=== PATIENT | male | born 1960 | race Asian ===

== ENCOUNTER 2021-06-01 12:07 | Observation (INO) | payer OTHER, MEDICAID, SELFPAY ==
[2021-06-01] VITALS (52 sets, daily range): BP systolic 119–161; BP diastolic 65–89; PULSE 73–86; RESP 15–27; TEMP 36.4–36.9; O2SAT 94–100; BMI 26.6
--- NOTE | 2021-06-01 | DI.CT.S_ITS ---
PROCEDURE: CT ANGIO HEAD AND NECK INDICATIONS: LEFT SIDED WEAKNESS TECHNIQUE: Pre-contrast 4.5 mm thick sections acquired from the foramen magnum to the vertex. After the administration of intravenous contrast, 1 mm thick sections acquired from the aortic arch through the [place]. Post-contrast 4.5 mm thick sections then re-acquired from the foramen magnum to the vertex. 3-dimensional ikslqha-fncfweugw-sbubdknffz (MIP) and/or volume rendering reformats were acquired of the central intracranial vasculature and neck separately. COMPARISON: None. FINDINGS: Image quality: Excellent. BRAIN: CSF spaces: Ventricles are normal in size and shape. Basal cisterns are patent. No extra-axial fluid collections. Brain: No midline shift. No intracranial bleeds or masses. Colón-white matter interface appears intact. Skull and face: Calvarium and facial bones appear intact, without suspicious lesions. Orbits appear normal. Sinuses: The left maxillary sinus has a mucosal retention cyst. The remaining visualized sinuses are well aerated. HEAD CT ANGIOGRAPHY: Anterior circulation: The the right A1 segment and right posterior communicating arteries are hypoplastic. The remaining intracranial internal carotid arteries are normal in size and flow. The flow within the paired anterior cerebral arteries is normal and symmetric. The flow within the middle cerebral arteries is normal and symmetric. The anterior communicating artery is seen. No aneurysms are seen. Posterior circulation: Visualized portions of the vertebral arteries demonstrate normal caliber, and join to form a normal appearing basilar artery. Flow within the posterior cerebral arteries is normal and symmetric. No aneurysms are seen. NECK CT ANGIOGRAPHY: Carotid system: There is a dissection of the aorta partially visualized in the aortic arch. The dissection appears to begin distal to the left subclavian artery. Changes of aneurysm repair are seen. CT of the chest and abdomen are pending. The visualized great vessels as they arise from the aortic arch are patent. The common carotid arteries demonstrate normal caliber and courses. The bifurcation regions are both widely patent. The internal carotid arteries demonstrate normal calibers and courses. Posterior circulation: The origins of the vertebral arteries both appear widely patent. The more superior extracranial portions of both vertebral arteries also demonstrate normal courses and calibers. They join to form a normal appearing basilar artery. Soft tissues: Visualized neck soft tissues demonstrate no suspicious abnormalities. Bones: No suspicious bony lesions. Visualized cervical spine appears normally aligned. IMPRESSION: 1. Partially visualized aortic dissection. The dissection appears to begin distal to the left subclavian artery. Postoperative changes of aneurysm repair are seen. 2. The proximal origins of the common carotid arteries are not completely visualized, however the remainder of the CT angiogram of the neck. 3. Normal CT angiogram of the head. CT angiogram of the chest, abdomen, and pelvis will be dictated separately. Findings were discussed with Dr. Boswell at 1 p.m. On 06/01/2021. Dictated by: Tyree King M.D. on 06/01/2021 at 12:50 Approved by: Tyree King M.D. on 06/01/2021 at 13:07
--- NOTE | 2021-06-01 | DI.CT.S_ITS ---
PROCEDURE: CT ANGIO CHEST ABDOMEN PELVIS INDICATIONS: dissection on recent CT Scan TECHNIQUE: Precontrast 5 mm thick sections acquired from the lung apices to the iliac crests. After the administration of intravenous contrast, 2.5 mm thick sections again acquired from the lung apices to the iliac crests. Maximum intensity projection (MIP) oblique sagittal and coronal reformats were then acquired. For radiation dose reduction, the following was used: automated exposure control. COMPARISON: [facility], CT, CT ANGIO HEAD AND NECK, 06/01/2021, 12:32. FINDINGS: Image quality: Excellent. AORTA: There is a dissection within the descending thoracic aorta which extends into the superior most portion of the abdominal aorta to the level of the celiac axis. The dissection is at the left lateral most margin of the celiac axis origin, which is centered upon the true lumen. Dissection extends superiorly into the aortic arch and distal ascending thoracic aorta. There appears to be postsurgical changes from prior dissection repair, with apparent vessel translocation. It is suspected there was a [place] bovine arch with postsurgical anastomosis of the left subclavian to the [place] origin of the innominate and left common carotid arteries. Dissection does not appear to extend into the common origin. CHEST: Lungs and pleura: No acute airspace opacities. No pleural effusions or pneumothorax. Central and peripheral airways are patent and normal in caliber. Mediastinum: Heart size is normal. No pericardial effusion. No mediastinal or hilar adenopathy by size criteria. Central pulmonary arteries are normal in size. Esophagus is normal in caliber. No hiatal hernias. Bones and chest wall: No axillary adenopathy by size criteria. Thyroid gland is unremarkable . No suspicious bony lesions. No vertebral body compression fractures. ABDOMEN: Vasculature: Celiac trunk and mesenteric arteries are patent. Renal arteries are also patent. Solid organs: Liver is normal in size and enhancement. Gallbladder demonstrates dependent sludge versus small stones. No wall thickening Biliary system is non dilated. Pancreas enhances normally. Spleen is normal in size and enhancement. No adrenal nodules. Both kidneys are normal in size and enhancement, without hydronephrosis. Peritoneum and bowel: No free fluid or air. Bowel loops are normal in caliber and wall thickness. Nodes and vessels: No retroperitoneal or mesenteric adenopathy by size criteria. Inferior vena cava is normal in morphology. Miscellaneous: No ventral hernias. PELVIS: Genitourinary: Bladder wall thickness is normal. Miscellaneous: No inguinal hernias or adenopathy. No ventral hernias. Bones: No suspicious bony lesions. No vertebral body compression fractures. IMPRESSION: 1. Type A aortic dissection extending into the aortic arch and portions of the ascending aorta. There is an overall appearance of what appears to be prior dissection repair with translocation of great vessels. Recommend correlation to patient history and prior imaging if it becomes available. There is no definitive dissection identified extending into what appears to be the postsurgical common origin of the innominate, left common carotid and subclavian arteries. 2. Dissection extends into the descending thoracic aorta and into the abdominal aorta terminating at the level of the celiac axis as above. The dissection is noted to be present at the lateral most margin of the celiac axis origin as above. The above findings were discussed with Dr. Ana Boswell on 06/01/2021 at 1:15 p.m. Dictated by: Maryann Hollis M.D. on 06/01/2021 at 13:01 Approved by: Maryann Hollis M.D. on 06/01/2021 at 13:25
--- NOTE | 2021-06-01 12:18 | DI.RAD.S_ITS ---
PROCEDURE: XR CHEST 1V INDICATIONS: Possible stroke TECHNIQUE: One view of the chest was acquired. COMPARISON: None. FINDINGS: Surgical changes and devices: Status post CABG procedure. Lungs and pleura: Lungs are clear. No pleural effusions or pneumothorax. Mediastinum: Aortic arch and descending aorta are prominent. Heart size is normal. Bones and chest wall: No suspicious bony lesions. Overlying soft tissues appear unremarkable. IMPRESSION: 1. No acute cardiopulmonary disease process. 2. Aorta prominence. Aortic aneurysm is not excluded by this study. Dictated by: Haydee Ashley MD, PhD on 06/01/2021 at 12:43 Approved by: Haydee Ashley MD, PhD on 06/01/2021 at 12:44
--- NOTE | 2021-06-01 12:18 | DI.CT.S_ITS ---
PROCEDURE: CT STROKE INDICATIONS: numbness in left hand and severe DIAZ TECHNIQUE: Noncontrast 4.5 mm thick angled axial sections acquired from the foramen magnum to the vertex, with coronal reformats. For radiation dose reduction, the following was used: automated exposure control, adjustment of mA and/or kV according to patient size. COMPARISON: None. FINDINGS: Image quality: Excellent. CSF spaces: Basal cisterns are patent. No extra-axial fluid collections. The ventricles are symmetric in size and shape. Brain: No intracranial bleeds or masses. There is cerebral volume loss for age, with resultant ventricular and sulcal prominence. There are periventricular and deep white matter chronic small vessel ischemic changes. There is intracranial internal carotid artery atherosclerosis. Hypodensity involving the right parietal lobe could reflect infarct. Skull and face: Calvarium and visualized facial bones appear intact, without suspicious lesions. Sinuses: Mild left maxillary mucous retention cysts and thickening. IMPRESSION: No acute intracranial hemorrhage. Hypodensity involving the right parietal lobe, potentially infarct. This could be confirmed with MRI brain as clinically necessary. Findings (including all critical results, if any) and recommendations were personally telephoned and discussed with Dr. Boswell on 06-01-21 12:38 This study fulfills neurological imaging criteria for inclusion or exclusion of acute stroke therapies based on available published neurological guidelines. Dictated by: Kavin Dejesus M.D. on 06/01/2021 at 12:33 Approved by: Kavin Dejesus M.D. on 06/01/2021 at 12:40
--- NOTE | 2021-06-01 12:36 | ED_ITS ---
HPI - Neuro Symptoms/Deficit General Chief Complaint: Neuro Symptoms/Deficit Stated Complaint: stroke symptoms Time Seen by Provider: 06/01/21 12:36 Source: patient Mode of arrival: Ambulatory Limitations: no limitations History of Present Illness HPI Narrative: This is a 60-year-old male who comes emergency department with complaint of left-sided headache and tingling in his left upper extremity. Patient states he had symptoms about a year ago. He states some that he has had a dissection which he states was repaired in [facility] 4-[address] Rowell. Patient lives in [place] and states he has been followed regularly and had a CT scan in the past year which appeared stable. Patient states he has been asymptomatic since then. He has a left-sided headache behind his eye, tingling in his upper extremity but denies other symptoms. He denies any other weakness or difficulty with movement, no tingling or numbness in his lower extremities. He denies any chest pain or pressure. No shortness of breath. He has had some mild nausea but no vomiting. Patient denies any diarrhea, constipation or urinary symptoms. Patient takes losartan and metoprolol daily. He denies any other surgical history. No allergies to medications. No tobacco, occasional alcohol, no illicit. He is accompanied by his today. Related Data Allergies Allergy/AdvReac Type Severity Reaction Status Date / Time No Known Drug Allergies Allergy Verified 06/01/21 12:15 Review of Systems Review of Systems ROS Unobtainable: All systems reviewed & are unremarkable except as noted in HPI and below Patient History Family History (Updated 06/01/21 @ 18:06 by Marisa Vences MD) Father FH: heart attack Social History household members: spouse Smoking Status: Never smoker alcohol intake: current Smoking Status: Unknown if ever smoked alcohol intake frequency: a few times a week Substance Use Type: does not use Exam Narrative Exam Narrative: GEN: well nourished, well appearing male, alert and oriented x 3, patient appears to be in mild distress. HEENT: Atraumatic, pupils are equal round reactive to light, extraocular movements are intact, nares are clear, TMs are clear with no fluid, there is no conjunctival pallor. Throat is clear without any exudates, erythema, tonsillar enlargement or uvular deviation, no facial droop. No bruit. HEART: Regular rate and rhythm without murmur, clicks, rubs. No carotid bruits, pulses are equal in upper and lower extremities LUNGS:Lungs clear to auscultation, no wheezes, rales, crackles, chest moves symmetrically ABD:bowel sounds normal, soft, non-tender, no guarding, rebound, rigidity, no masses noted, no hepatosplenomegaly :No CVA tenderness MSCL: Non-tender, no muscle atrophy, muscles strength 5/5 upper and lower extremities, full range of motion, normal gait NEURO:CN 2-12 intact, sensation normal SKIN: No rash or skin changes. Initial Vital Signs Initial Vital Signs: Vital Signs Temperature 97.6 F 06/01/21 12:15 Pulse Rate 86 06/01/21 12:15 Respiratory Rate 15 06/01/21 12:15 Blood Pressure 144/80 H 06/01/21 12:15 Pulse Oximetry 98 06/01/21 12:15 Scores NIH Stroke Scale Level of Conciousness: Alert, keenly responsive Ask month/age: Answers both questions correctly. Open/close eyes, close hand: Performs both tasks correctly Best gaze horizontal: Normal Visual sharpe: No visual loss Facial palsy: Normal symetrical movement Left arm drift: No drift for full 10 sec Right arm drift: No drift for full 10 sec Left leg drift: No drift for full 5 sec Right leg drift: No drift for full 5 sec Limb ataxia: Absent Sensory on face/arms/legs: Mild to moderate sensory loss, can tell touch Best language: No aphasia, normal Dysarthria: Normal Extinction or inattention: No abnormality Total NIH Stroke scale score: 1 Course Orders Ordered: ED Orders 06/01/21 14:00 COVID19 - ADMIT (PSYCHIATRIC THERAPIST swab/PCR) Stat Acetaminophen (Acetaminophen 325 Mg Tablet) 650 mg PO Q6HR PRN PRN Reason: Fever/Mild Pain (1-3) Hydrocodone Bitart/Acetaminophen (Hydrocodone/Acet 5/325 Tablet) 1 tab PO Q4HR PRN PRN Reason: Pain, Moderate (4-6) Last Admin: 06/01/21 19:46 Dose: 1 tab Documented by: [email or web address] Aspirin (Aspirin Ec 81 Mg Tablet) 81 mg PO DAILY JAKE Bisacodyl (Bisacodyl 10 Mg Supp) 10 mg [place] DAILY PRN PRN Reason: Constipation Clopidogrel Bisulfate (Clopidogrel 75 Mg Tablet) 75 mg PO DAILY JAKE Docusate Sodium (Docusate 100 Mg Capsule) 100 mg PO BID JAKE Enoxaparin Sodium (Enoxaparin 40 Mg/0.4 Ml Syringe) 40 mg SUBCUT DAILY JAKE Magnesium Hydroxide (Magnesium Hydroxide 30 Ml Udc) 30 ml PO DAILY PRN PRN Reason: Constipation Naloxone HCl (Naloxone 0.4 Mg/Ml Vial) 0.2 mg IV Q2MIN PRN PRN Reason: Opiate Reversal Ondansetron HCl (Ondansetron 4 Mg/2 Ml Inj) 4 mg IV Q8HR PRN PRN Reason: Nausea And Vomiting Discontinued Medications Aspirin (Aspirin 81 Mg Chew Tab) 324 mg PO NOW ONE Stop: 06/01/21 15:14 Last Admin: 06/01/21 15:16 Dose: 324 mg Documented by: FRED Labetalol HCl (Labetalol 20 Mg/4 Ml Syringe) 5 mg IV NOW ONE Stop: 06/01/21 12:52 Last Admin: 06/01/21 12:55 Dose: 5 mg Documented by: FRED Labetalol HCl (Labetalol 20 Mg/4 Ml Syringe) 10 mg IV NOW ONE Stop: 06/01/21 13:20 Last Admin: 06/01/21 13:26 Dose: 10 mg Documented by: FRED Reevaluation(s) Reevaluation #1: Evaluation after speaking with [facility]. Patient aware and comfortable with plan. All questions answered. He is also aware that he should be having a referral and follow-up for regular serial exams of his dissection and that this would be most appropriate with subspecialty and not just primary care. He should be expecting a phone call Friday or Friday and should reach out if he has not been contacted . Consultations Consultation #1: Dr. Poole at 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 Patient's repair and dissection are appreciated. No acute intervention at this time with a referral is sent by [facility] coordinator to follow-up outpatient for continuing monitoring and treatment as appropriate at [facility]. He does not feel that patient's changes today are the cause of his stroke-like symptoms. We did note that he does have subacute stroke noted on his head CT. We also discussed specifically if patient can not be anticoagulated and was told no restrictions in terms of anticoag ulation patient may be treated as appropriate by neurology. We did review that patient had his repair done in [place], we do not have any imaging for comparison. Patient's maximum diameter per Radiology was 5.3 cm and unclear if any of this is new changes from prior. He has a primary care physician that he follows with regularly but no he specialty follow-up for his dissection. Consultation #2: Neurology [facility], spoke with neurology. They recommend aspirin 325 mg. Atorvastatin until wrist fracture medication it has returned usual stroke workup with MRI, telemetry and labs. Patient is not an interventional candidate based on his timing. Consultation #3: Dr. Vences, hospitalist accepts for admission. We reviewed patient's past medical history, recommendations from CBT at [facility] who did review his images and did clearly state that he is allowed to be anticoagulated. And that they do not have any restrictions for him at this point. We also spoke with neurology who recommends typical stroke workup. Patient's does have changes on head CT. He is outside the interventional window. Aspirin was ordered here in the department. Additional Consultation(s): Radiology, called with CT angiography of head and neck and chest/abd/pelvis. They do note he does have transposition but his dissection does not appear to involve the common origin of the innominate, left carotid or subclavian arteries. Dissection extends through the aorta into the descending aorta and terminates just above the celiac vessel. We do not have any priors for comparison and unclear if this is any acute or new changes versus chronic change. Maximum diameter or aorta is 5.3cm with clips present. Vital Signs Vital signs: Vital Signs - 8 hr 06/01/21 14:45 06/01/21 14:50 06/01/21 14:55 Pulse Rate 84 79 81 Respiratory Rate 22 18 16 Blood Pressure 153/82 H Pulse Oximetry 96 95 95 MDM - Neuro Symptoms/Deficit Lab Data Result diagrams: 06/01/21 12:54 06/01/21 12:54 Labs: Lab Results 06/01/21 06/01/21 06/01/21 Range/Units 12:54 12:54 12:54 WBC 4.8 (4.5-11.0) X10^3/uL RBC 3.66 L (4.5-5.9) X10^6/uL Hgb 12.4 L (13.5-17.5) g/dL Hct 37.0 L (41-53) % MCV 101.3 H (80-100) fL MCH 33.9 (26-34) PG MCHC 33.4 (30-36) % RDW 12.7 (11.6-14.8) % Plt Count 196 (150-400) X10^3/uL Neut % (Auto) 65.3 (50-75) % Lymph % (Auto) 22.6 L (25-40) % [place]offey % (Auto) 9.0 (3-14) % Eos % (Auto) 2.4 (2-4) % Baso % (Auto) 0.7 (0-2) % Neut # (Auto) 3100 (0727-1987) /uL Lymph # (Auto) 1100 (1485-9964) /uL [place]offey # (Auto) 400 (0-900) /uL Eos # (Auto) 100 (0-450) /uL Baso # (Auto) 0 (0-100) /uL PT 12.7 (10.1-12.7) SECONDS INR 1.1 (0.9-1.3) APTT 32 (26.4-36.2) SECONDS Sodium 136 L (137-145) mmol/L Potassium 3.8 (3.4-5.1) mmol/L Chloride 105 (98-107) mmol/L Carbon Dioxide 26 (22-32) mmol/L BUN 25 H (9-20) mg/dL Creatinine 0.77 (0.66-1.25) mg/dL Estimated GFR > 60.0 (>60) mL/min BUN/Creatinine Ratio 32.5 H (6-22) Glucose 115 H (80-110) mg/dL Calcium 8.2 L (8.4-10.2) mg/dL Total Bilirubin 0.6 (0.2-1.3) mg/dL AST 20 (17-59) IU/L ALT 15 (<50) IU/L Alkaline Phosphatase 37 L (38-126) U/L Total Creatine Kinase 52 L (55-170) U/L CK-MB (CK-2) TNP CK-MB (CK-2) Rel Index TNP Troponin I < 0.012 (0.01-0.034) ng/mL Total Protein 6.0 L (6.3-8.2) g/dL Albumin 3.3 L (3.5-5.0) g/dL Globulin 2.7 (1.7-4.1) g/dL Albumin/Globulin Ratio 1.2 (1.0-2.8) SARS-CoV-2 (PCR) (Negative) Blood Type Antibody Screen Crossmatch 06/01/21 06/01/21 Range/Units 12:54 14:00 WBC (4.5-11.0) X10^3/uL RBC (4.5-5.9) X10^6/uL Hgb (13.5-17.5) g/dL Hct (41-53) % MCV (80-100) fL MCH (26-34) PG MCHC (30-36) % RDW (11.6-14.8) % Plt Count (150-400) X10^3/uL Neut % (Auto) (50-75) % Lymph % (Auto) (25-40) % Coffey % (Auto) (3-14) % Eos % (Auto) (2-4) % Baso % (Auto) (0-2) % Neut # (Auto) (0621-5496) /uL Lymph # (Auto) (5020-1923) /uL Coffey # (Auto) (0-900) /uL Eos # (Auto) (0-450) /uL Baso # (Auto) (0-100) /uL PT (10.1-12.7) SECONDS INR (0.9-1.3) APTT (26.4-36.2) SECONDS Sodium (137-145) mmol/L Potassium (3.4-5.1) mmol/L Chloride (98-107) mmol/L Carbon Dioxide (22-32) mmol/L BUN (9-20) mg/dL Creatinine (0.66-1.25) mg/dL Estimated GFR (>60) mL/min BUN/Creatinine Ratio (6-22) Glucose (80-110) mg/dL Calcium (8.4-10.2) mg/dL Total Bilirubin (0.2-1.3) mg/dL AST (17-59) IU/L ALT (<50) IU/L Alkaline Phosphatase (38-126) U/L Total Creatine Kinase (55-170) U/L CK-MB (CK-2) CK-MB (CK-2) Rel Index Troponin I (0.01-0.034) ng/mL Total Protein (6.3-8.2) g/dL Albumin (3.5-5.0) g/dL Globulin (1.7-4.1) g/dL Albumin/Globulin Ratio (1.0-2.8) SARS-CoV-2 (PCR) Negative (Negative) Blood Type A Positive Antibody Screen Negative Crossmatch See Detail Point of Care Testing Glucose POC [address] scan - head: Radiologist's Impression: [address] [id number] Scan ReportSigned Patient: Denis Porter#: [id number]: 9Acct:[id number]/Sex: 60 / MDate of Service: 06/01/21Loc: EDAccession Number: [id number] Procedure: CT Stroke Ordering Provider: Ana Boswell D.O. PROCEDURE: CT STROKE INDICATIONS: numbness in left hand and severe DIAZ TECHNIQUE: Noncontrast 4.5 mm thick angled axial sections acquired from the foramen magnum to the vertex, with coronal reformats. For radiation dose reduction, the following was used: automated exposure control, adjustment of mA and/or kV according to patient size. COMPARISON: None. FINDINGS: Image quality: Excellent. CSF spaces: Basal cisterns are patent. No extra-axial fluid collections. The ventricles are symmetric in size and shape. Brain: No intracranial bleeds or masses. There is cerebral volume loss for age, with resultant ventricular and sulcal prominence. There are periventricular and deep white matter chronic small vessel ischemic changes. There is intracranial internal carotid artery atherosclerosis. Hypodensity involving the right parietal lobe could reflect infarct. Skull and face: Calvarium and visualized facial bones appear intact, without suspicious lesions. Sinuses: Mild left maxillary mucous retention cysts and thickening. IMPRESSION: No acute intracranial hemorrhage. Hypodensity involving the right parietal lobe, potentially infarct. This could be confirmed with MRI brain as clinically necessary. Findings (including all critical results, if any) and recommendations were personally telephoned and discussed with Dr. Boswell on 06-01-21 12:38 This study fulfills neurological imaging criteria for inclusion or exclusion of acute stroke therapies based on available published neurological guidelines. Dictated by: Kavin Dejesus M.D. on 06/01/2021 at 12:33 Approved by: Kavin Dejesus M.D. on 06/01/2021 at 12:40 CTA - brain/neck: Radiologist's Impression: Denis Porter 60 M [address] [id number] Scan ReportSigned Patient: Denis PorterR#: [id number]: 1960cct:[id number]/Sex: 60 / MDate of Service: 06/01/21Loc: EDAccession Number: [id number] Procedure: CT angio head and neck Ordering Provider: Ana Boswell D.O. PROCEDURE: CT ANGIO HEAD AND NECK INDICATIONS: LEFT SIDED WEAKNESS TECHNIQUE: Pre-contrast 4.5 mm thick sections acquired from the foramen magnum to the vertex. After the administration of intravenous contrast, 1 mm thick sections acquired from th e aortic arch through the [place]. Post-contrast 4.5 mm thick sections then re- acquired from the foramen magnum to the vertex. 3-dimensional sjoikac-aybwrphma-ouxumabwqm (MIP) and/or volume rendering reformats were acquired of the central intracranial vasculature and neck separately. COMPARISON: None. FINDINGS: Image quality: Excellent. BRAIN: CSF spaces: Ventricles are normal in size and shape. Basal cisterns are patent. No extra-axial fluid collections. Brain: No midline shift. No intracranial bleeds or masses. Colón-white matter interface appears intact. Skull and face: Calvarium and facial bones appear intact, without suspicious lesions. Orbits appear normal. Sinuses: The left maxillary sinus has a mucosal retention cyst. The remaining visualized sinuses are well aerated. HEAD CT ANGIOGRAPHY: Anterior circulation: The the right A1 segment and right posterior communicating arteries are hypoplastic. The remaining intracranial internal carotid arteries are normal in size and flow. The flow within the paired anterior cerebral arteries is normal and symmetric. The flow within the middle cerebral arteries is normal and symmetric. The anterior communicating artery is seen. No aneurysms are seen. Posterior circulation: Visualized portions of the vertebral arteries demonstrate normal caliber, and join to form a normal appearing basilar artery. Flow within the posterior cerebral arteries is normal and symmetric. No aneurysms are seen. NECK CT ANGIOGRAPHY: Carotid system: There is a dissection of the aorta partially visualized in the aortic arch. The dissection appears to begin distal to the left subclavian artery. Ch anges of aneurysm repair are seen. CT of the chest and abdomen are pending. The visualized great vessels as they arise from the aortic arch are patent. The common carotid arteries demonstrate normal caliber and courses. The bifurcation regions are both widely patent. The internal carotid arteries demonstrate normal calibers and courses. Posterior circulation: The origins of the vertebral arteries both appear widely patent. The more superior extracranial portions of both vertebral arteries also demonstrate normal courses and calibers. They join to form a normal appearing basilar gianna ry. Soft tissues: Visualized neck soft tissues demonstrate no suspicious abnormalities. Bones: No suspicious bony lesions. Visualized cervical spine appears normally aligned. IMPRESSION: 1. Partially visualized aortic dissection. The dissection appears to begin distal to the left subclavian artery. Postoperative changes of aneurysm repair are seen. 2. The proximal origins of the common carotid arteries are not completely visualized, however the remainder of the CT angiogram of the neck. 3. Normal CT angiogram of the head. CT angiogram of the chest, abdomen, and pelvis will be dictated separately. Findings were discussed with Dr. Boswell at 1 p.m. On 06/01/2021. Dictated by: Tyree King M.D. on 06/01/2021 at 12:50 Approved by: Tyree King M.D. on 06/01/2021 at 13:07 CTA chest/abd/pelvis-: Radiologist's Impression: [address] [id number] Scan ReportSigned Patient: Denis PorterR#: [id number]: 9Acct:[id number]/Sex: 60 / MDate of Service: 06/01/21Loc: EDAccession Number: [id number] Procedure: CT angio chest abdomen pelvis Ordering Provider: Ana Boswell D.O. PROCEDURE: CT ANGIO CHEST ABDOMEN PELVIS INDICATIONS: dissection on recent CT Scan TECHNIQUE: Precontrast 5 mm thick sections acquired from the lung apices to the iliac crests. After the administration of intravenous contrast, 2.5 mm thick sections again acquired from the lung apices to the iliac crests. Maximum intensity projection (MIP) oblique sagittal and coronal reformats were then acquired. For radiation dose reduction, the followi ng was used: automated exposure control. COMPARISON: [facility], CT, CT ANGIO HEAD AND NECK, 06/01/2021, 12:32. FINDINGS: Image quality: Excellent. AORTA: There is a dissection within the descending thoracic aorta which extends into the superior most portion of the abdominal aorta to the level of the celiac axis. The dissection is at the left lateral most margin of the celiac axis origin, which is centered upon the true lumen. Dissection extends superiorly into the aortic ar ch and distal ascending thoracic aorta. There appears to be postsurgical changes from prior dissection repair, with apparent vessel translocation. It is suspected there was a [place] bovine arch with postsurgical anastomosis of the left subclavian to the [place] origin of the innominate and left common carotid arteries. Dissection does not appear to extend into the common origin. CHEST: Lungs and pleura: No acute airspace opacities. No pleural effusions or pneumothorax. Central and peripheral airways are patent and normal in caliber. Mediastinum: Heart size is normal. No pericardial effusion. No mediastinal or hilar adenopathy by size criteria. Central pulmonary arteries are normal in size. Esophagus is normal in caliber. No hiatal hernias. Bones and chest wall: No axillary adenopathy by size criteria. Thyroid gland is unremarkable . No suspicious bony lesions. No vertebral body compression fractures. ABDOMEN: Vasculature: Celiac trunk and mesenteric arteries are patent. Renal arteries are also patent. Solid organs: Liver is normal in size and enhancement. Gallbladder demonstrates dependent sludge versus small stones. No wall thickening Biliary system is non dilated. Pancreas enhances normally. Spleen is normal in size and enhancement. No adrenal nodules. Both kidneys are normal in size and enhancement, without hydronephrosis. Peritoneum and bowel: No free fluid or air. Bowel loops are normal in caliber and wall thickness. Nodes and vessels: No retroperitoneal or mesenteric adenopathy by size criteria. Inferior vena cava is normal in morphology. Miscellaneous: No ventral hernias. PELVIS: Genitourinary: Bladder wall thickness is normal. Miscellaneous: No inguinal hernias or adenopathy. No ventral hernias. Bones: No suspicious bony lesions. No vertebral body compression fractures. IMPRESSION: 1. Type A aortic dissection extending into the aortic arch and portions of the ascending aorta. There is an overall appearance of what appears to be prior dissection repair with translocation of great vessels. Recommend correlation to patient history and prior imaging if it becomes available. There is no definitive dissection identified extending into what appears to be the postsurgical common origin of the innominate, left common carotid and subclavian arteries. 2. Dissection extends into the descending thoracic aorta and into the abdominal aorta terminating at the level of the celiac axis as above. The dissection is noted to be present at the lateral most margin of the celiac axis origin as above. The above findings were discussed with Dr. Ana Boswell on 06/01/2021 at 1:15 p.m. Dictated by: Maryann Hollis M.D. on 06/01/2021 at 13:01 Approved by: Maryann Hollis M.D. on 06/01/2021 at 13:25 ECG Data Interpretation: Sinus rhythm with first-degree AV block. Left atrial enlargement. Rate 84, [place] 236 QRS of 102 and QTC of 458. No acute ST changes noted. MDM Narrative Medical decision making narrative: This is a 60-year-old who does appear to have a hypodensity consistent with infarct with that symptom onset around midnight. It was noted on CT angiography that he has a Type A dissection, patient has had repair but chest abdomen pelvis was included and this extends to the level of the celiac axis. I do not have prior imaging for comparison. Patient is asymptomatic in terms of any chest, abdominal or back pain. He does have tingling of his left upper extremity, left-sided headache and with no other acute neurologic changes. Patient states his repair was 4-5 years ago in [place]. He has at least 1 CT scan for follow-up evaluation but this was in [place] and we do not have access. Patient's symptoms started sometime around midnight or earlier last night so he is excluded for tPA in the setting of a dissection he is secondarily excluded tpa. Patient blood pressure was in the 140s, he was given labetalol to keep it below 120 until he is able to speak with the [place] at [facility] who states no acute treatment at this time but he can follow-up outpatient with the clinic. They did review all of his images. They state this is an unlikely source for his stroke recommend that we chatted with Neurology. They also do not have any restrictions in terms of anticoagulation. Referral was sent to [facility] for follow-up. I did speak with Neurology [facility] as well, they recommend usual stroke workup. I spoke with our hospitalist and shared recommendations from both specialty consultations and she accepts for admission. Stroke Core Measures Exclusion Criteria TPA in CVA: Symptom Onset >3 or 4.5 Hours Critical Care Time Critical Care Time Critical Care Time: Yes Total Critical Care Time: 65 Attestation: The high probability of a clinically significant, sudden or life threatening deterioration of the [cardiac] system(s) required my full and direct attention, intervention and personal management. The aggregate critical care time was [65] minutes. This time is in addition to time spent performing reported procedures but includes the following: [x] Data Review and interpretation [x] Patient assessment and monitoring of vital signs [x] Documentation [x] Medication orders and management Discharge Plan Departure Patient Disposition: Admitted As Inpatient Clinical Impression: Cerebrovascular accident Admit Date/Time: 06/01/21 14:57 Admit Provider: Marisa Vences
[2021-06-01] MEDS: LABETALOL 20 MG/4 ML SYRINGE 5 MG IV (12:55)
[2021-06-01 13:10] LABS: Add Manual Diff / Slide Review NO; Basophils Absolute Auto 0 /uL (0-100); Basophils Percent Auto 0.7 % (0-2); Eosinophils Absolute Auto 100 /uL (0-450); Eosinophils Percent Auto 2.4 % (2-4); Hemoglobin 12.4 g/dL (13.5-17.5); Lymphocytes Absolute Auto 1100 /uL (1100-4500); Lymphocytes Percent Auto 22.6 % (25-40); Mean Corpuscular HGB Conc 33.4 % (30-36); Mean Corpuscular Hemoglobin 33.9 PG (26-34); Mean Corpuscular Volume 101.3 fL (80-100); Monocytes Absolute Auto 400 /uL (0-900); Neutrophils Absolute Auto 3100 /uL (1500-7000); Neutrophils Percent Auto 65.3 % (50-75); Platelet Count 196 X10^3/uL (150-400); Red Blood Cell Count 3.66 X10^6/uL (4.5-5.9); Red Cell Distribution Width 12.7 % (11.6-14.8); White Blood Cell Count 4.8 X10^3/uL (4.5-11.0)
[2021-06-01 13:18] LABS: INR 1.1 (0.9-1.3); Prothrombin Time 12.7 SECONDS (10.1-12.7)
[2021-06-01 13:20] LABS: PTT Partial Thromboplastin Tim 32 SECONDS (26.4-36.2)
[2021-06-01 13:25] LABS: Alanine Aminotransferase 15 IU/L (<50); Albumin 3.3 g/dL (3.5-5.0); Albumin Globulin Ratio 1.2 (1.0-2.8); Alkaline Phosphatase 37 U/L (38-126); Aspartate Aminotransferase 20 IU/L (17-59); BUN Creatinine Ratio 32.5 (6-22); Bilirubin Total 0.6 mg/dL (0.2-1.3); Blood Urea Nitrogen 25 mg/dL (9-20); Calcium 8.2 mg/dL (8.4-10.2); Carbon Dioxide 26 mmol/L (22-32); Chloride 105 mmol/L (98-107); Creatine Kinase 52 U/L (55-170); Estimated Glomerular Filt Rate > 60.0 mL/min (>60); Globulin 2.7 g/dL (1.7-4.1); Glucose 115 mg/dL (80-110); HEMOLYSIS < 15 (0-50); Potassium 3.8 mmol/L (3.4-5.1); Sodium 136 mmol/L (137-145)
[2021-06-01] MEDS: LABETALOL 20 MG/4 ML SYRINGE 10 MG IV (13:26)
[2021-06-01 13:36] LABS: Troponin I < 0.012 ng/mL (0.01-0.034)
[2021-06-01 15:07] LABS: COVID19 - ADMIT (NP swab/PCR) Negative (Negative)
[2021-06-01] MEDS: ASPIRIN 81 MG CHEW TAB 324 MG PO (15:16)
--- NOTE | 2021-06-01 17:59 | DI.ECHO.S_ITS ---
[facility] +---------+ : : [address] [place] : : : : [id number] : : : : Phone: [phone]+ Echocardiogram Report + + :Name: JOSE KENDALL Study Date: 06/02/2021 Height: 67 in : :[facility] ReadingLocation: Weight: 170 lb : : Gender: Male BSA: 1.9 m2 : :: 1960 Age: 60 yrs BP: 132/78 mmHg: :Reason For Study: STROKE : :Ordering Physician: BOBBY, : :QUAN Performed By: Jose Luis Simmons : :Referring: QUAN ROSALES : + + Interpretation Summary The left ventricle is normal in size. Left ventricular systolic function is normal. The ejection fraction is estimated to be 55-60%. There are no focal wall motion abnormalities. Diastolic parameters suggest probable normal left ventricular diastolic function and normal filling pressures. The right ventricle is normal in size and function. The right ventricular systolic pressure is estimated to be at least 19 mmHg based on an estimated right atrial pressure of 3 mm Hg. Both atria are mildly dilated. There is no Doppler evidence for an interatrial shunt. Injection of contrast documented no interatrial shunt. There is mild mitral regurgitation. There is mild aortic regurgitation. There is no other significant valvular heart disease. The aortic root is normal size. Procedure: A two-dimensional transthoracic echocardiogram with color flow and Doppler was performed. The study quality was technically adequate. There is no prior echocardiogram noted for this patient. A saline contrast injection was performed to assess for cardiac shunting. The patient was in sinus rhythm with heart rates between 56-66 bpm during the exam. Left Ventricle: The left ventricle is normal in size. Left ventricular wall thickness is mild-moderately increased. Left ventricular systolic function is normal. The ejection fraction is estimated to be 55-60%. There are no focal wall motion abnormalities. Diastolic parameters suggest probable normal left ventricular diastolic function and normal filling pressures. Right Ventricle: The right ventricle is normal in size and function. Atria: Both atria are mildly dilated. There is no Doppler evidence for an interatrial shunt. Injection of contrast documented no interatrial shunt. Mitral Valve: The mitral valve is normal in structure and function. There is mild mitral regurgitation. Aortic Valve: There is mild aortic valve sclerosis. There is mild aortic regurgitation. Tricuspid Valve: The tricuspid valve is normal in structure and function. There is trace tricuspid regurgitation. The right ventricular systolic pressure is estimated to be at least 19 mmHg based on an estimated right atrial pressure of 3 mm Hg. Pulmonic Valve: The pulmonic valve is normal in structure and function. There is a trace or physiologic amount of pulmonic regurgitation. There is no other significant valvular heart disease. Great Vessels: The aortic root is normal size. The dimensions of the ascending aorta are normal. The IVC is of normal diameter and collapses greater than 50% with a sniff. This suggests a low right atrial pressure of 3 mm Hg. Pericardium/ Pleura There is no pericardial effusion. There is no pleural effusion. MMode/2D Measurements & Calculations LVIDd: 4.6 cm LVOT diam: 2.4 cm LVIDs: 3.1 cm Ao root diam: 3.8 cm FS: 32.6 % asc Aorta Diam: 3.4 cm IVSd: 1.4 cm LVPWd: 1.1 cm LV epstein. diameter/BSA (cm/m^2): 2.4 LV sys. diameter/BSA (cm/m^2): 1.7 LA A2 area: 20.0 cm2 RA long axis: 5.9 cm LA A4 area: 21.6 cm2 RA area: 22.4 cm2 LA length (vol): 5.9 cm RA vol: 72.2 ml LA vol: 62.2 ml RA : 38.2 ml/m2 LA vol index: 33.0 ml/m2 TAPSE: 1.8 cm Doppler Measurements & Calculations Ao V2 max: 143.2 cm/sec LVOT Max Mustapha: 97.6 cm/sec Ao V2 mean: 102.4 cm/sec LV V1 max P.8 mmHg Ao max P.2 mmHg LV V1 VTI: 20.1 cm Ao mean P.8 mmHg BRIDGETTE(I,D): 3.2 cm2 Ao V2 VTI: 28.5 cm BRIDGETTE(V,D): 3.1 cm2 sev ratio: 0.71 BRIDGETTE indexed to BSA (cm^2/m^2): 1.7 MV E max mustapha: 87.9 cm/sec TR max mustapha: 202.8 cm/sec MV A max mustapha: 82.0 cm/sec TR max P.4 mmHg MV E/A: 1.1 PA pr(Accel): 50.7 mmHg Med Peak E' Mustapha: 7.7 cm/sec E/E' med: 11.4 Lat Peak E' Mustapha: 10.9 cm/sec E/E' lat: 8.1 E/e' average: 9.7 MV dec time: 0.20 sec SV(LVOT): 91.4 ml Reading Physician:03:25 PM
--- NOTE | 2021-06-01 18:01 | DI.MRI.S_ITS ---
PROCEDURE: MR HEAD/BRAIN WO/W CON INDICATIONS: r/o CVA TECHNIQUE: Noncontrast axial T1 spin echo, axial T2 fast spin echo, sagittal and axial FLAIR, coronal T2 fast spin echo, axial gradient echo, axial diffusion and ADC through the brain. After the administration of contrast, axial and coronal T1 spin echo with fat saturation through the brain. COMPARISON: None. FINDINGS: Image quality: Excellent. CSF spaces: Basal cisterns are patent. No extra-axial fluid collections. Ventricles are normal in size and shape. Brain: No restricted diffusion. The major intracranial vascular flow-related signal voids are maintained. No abnormal intracranial susceptibility. Global cerebral volume loss and moderate chronic microvascular ischemic changes. Small remote right parietal lobe infarct with a cephalo blade chavarria gliosis. Skull and face: Calvarial marrow is normal in signal. Orbits appear normal. Sinuses: Sinuses and mastoids appear clear other than maxillary sinus mucous retention cysts. IMPRESSION: No findings of recent ischemia or other acute intracranial abnormality. 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 Mild global cerebral volume loss and moderate chronic microvascular ischemic changes. Dictated by: Chevy Matute M.D. on 06/01/2021 at 19:22 Approved by: Chevy Matute M.D. on 06/01/2021 at 19:25
--- NOTE | 2021-06-01 18:02 | PM.HP.1 ---
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 Patient was in his usual state of health until yesterday. He woke up this morning with tingling of the left hand. He also complained of headache. As he did not feel quite right he presented to the emergency room for evaluation. The patient had no weakness in the arms or legs, he had no slurring of his speech, he had no difficulty speaking. The patient is chronically on an aspirin which he takes. He also has hypertension for which she is on medications. The patient was seen and evaluated in the emergency department. He underwent CT scan of his head which revealed no acute intracranial hemorrhage. There was a hypodensity involving the right parietal lobe potentially suggesting an infarct. The patient underwent CT angio of the abdomen. This revealed a type a aortic dissection extending into the aortic arch and portions of the ascending aorta. This appears to be a prior dissection repair with translocation of great vessels. There is no definitive dissection extending into what appears to be the postsurgical common origin of the innominate, left common carotid and subclavian arteries. The dissection extends into the descending aorta and into the abdominal aorta terminating at the level of the celiac axis. The Patient is admitted to the hospital for evaluation probable stroke. Patient denies any fever or chills, no blurred vision or double vision. No dysuria hematuria pyuria, no joint pains or rashes, no hematemesis melena or bright red blood per rectum. The patient did have an episode of nausea and emesis in the emergency department. All other review of systems is negative Patient History Comment: Type a aortic dissection repair 5 years ago Family & Social History Family History (Updated 06/01/21 @ 18:06 by Marisa Vences MD) Father FH: heart attack Safety & Behavioral: Feels Safe in Current Yes Environment Been Physically Hurt or No Threatened By a Person Tobacco & Substance use: Smoking Status Unknown if ever smoked alcohol intake frequency a few times a week Substance Use Type does not use Meds Home Medications and Allergies Allergies Allergy/AdvReac Type Severity Reaction Status Date / Time No Known Drug Allergies Allergy Verified 06/01/21 12:15 Review of Systems Review of Systems Narrative: Ten point review of systems is negative Exam Vital Signs (past 8 hours): - 06/01/21 12:15 06/01/21 12:52 06/01/21 12:54 Temperature 97.6 F Pulse Rate 86 86 Respiratory Rate 15 Blood Pressure 144/80 H 139/74 Pulse Oximetry 98 98 06/01/21 12:57 06/01/21 13:00 06/01/21 13:04 Temperature Pulse Rate 86 85 82 Respiratory Rate 24 22 22 Blood Pressure 136/77 161/74 H 149/78 H Pulse Oximetry 99 98 97 06/01/21 13:12 06/01/21 13:15 06/01/21 13:20 Temperature Pulse Rate 81 81 82 Respiratory Rate 19 18 16 Blood Pressure 141/80 H 138/79 123/68 Pulse Oximetry 96 95 95 06/01/21 13:25 06/01/21 13:26 06/01/21 13:27 Temperature Pulse Rate 84 85 85 Respiratory Rate 17 Blood Pressure 119/70 141/89 H 141/89 H Pulse Oximetry 94 06/01/21 13:30 06/01/21 13:35 06/01/21 13:40 Temperature Pulse Rate 81 80 81 Respiratory Rate 17 15 16 Blood Pressure 138/74 137/72 148/76 H Pulse Oximetry 96 95 97 06/01/21 13:45 06/01/21 13:50 06/01/21 13:55 Temperature Pulse Rate 79 81 81 Respiratory Rate 16 17 18 Blood Pressure 128/65 Pulse Oximetry 96 95 95 06/01/21 14:00 06/01/21 14:05 06/01/21 14:10 Temperature Pulse Rate 81 78 79 Respiratory Rate 15 17 18 Blood Pressure 133/73 133/73 Pulse Oximetry 97 96 96 06/01/21 14:13 06/01/21 14:15 06/01/21 14:20 Temperature Pulse Rate 78 79 85 Respiratory Rate 18 18 22 Blood Pressure 127/70 131/71 Pulse Oximetry 96 96 97 06/01/21 14:25 06/01/21 14:30 06/01/21 14:31 Temperature Pulse Rate 82 85 82 Respiratory Rate 19 19 20 Blood Pressure 158/76 H Pulse Oximetry 97 99 99 06/01/21 14:35 06/01/21 14:40 06/01/21 14:45 Temperature Pulse Rate 83 80 84 Respiratory Rate 21 20 22 Blood Pressure 153/82 H Pulse Oximetry 98 96 96 06/01/21 14:50 06/01/21 14:55 06/01/21 15:00 Temperature Pulse Rate 79 81 78 Respiratory Rate 18 16 17 Blood Pressure 152/75 H Pulse Oximetry 95 95 95 06/01/21 15:05 06/01/21 15:10 06/01/21 15:15 Temperature Pulse Rate 78 80 76 Respiratory Rate 18 20 18 Blood Pressure 151/79 H Pulse Oximetry 96 97 95 06/01/21 15:20 06/01/21 15:25 06/01/21 15:30 Temperature Pulse Rate 79 79 77 Respiratory Rate 19 19 19 Blood Pressure 144/75 H Pulse Oximetry 96 96 96 06/01/21 15:35 06/01/21 15:40 06/01/21 15:45 Temperature Pulse Rate 80 80 81 Respiratory Rate 24 21 20 Blood Pressure 145/77 H Pulse Oximetry 97 97 96 06/01/21 15:50 06/01/21 15:55 06/01/21 16:00 Temperature Pulse Rate 81 81 Respiratory Rate 20 23 Blood Pressure 142/80 H Pulse Oximetry 98 97 97 06/01/21 16:05 06/01/21 16:15 06/01/21 16:30 Temperature Pulse Rate 80 78 79 Respiratory Rate 27 H 20 20 Blood Pressure 148/80 H 146/81 H Pulse Oximetry 96 95 97 06/01/21 16:45 06/01/21 17:00 Temperature Pulse Rate 73 76 Respiratory Rate 16 18 Blood Pressure 136/79 143/74 H Pulse Oximetry 96 96 Oxygen Delivery Method Room Air Narrative Exam Narrative: Pleasant male who appears his stated age Const Other: Well-nourished well-developed male lying in bed [facility] Other: HEENT: Normocephalic atraumatic, extraocular muscles are intact, oropharynx is clear, neck is supple without adenopathy Eyes Other: Sclera is anicteric, there is no conjunctival ejection, extraocular muscles are intact, visual sharpe are intact to confrontation Neck Other: Neck is supple without adenopathy Chest Other: Midline surgical incision well healed is noted Resp Other: Lungs clear to auscultation Cardio Other: Cardiac exam: Regular rate and rhythm normal S1-S2 the 2/6 systolic ejection murmur GI Other: Abdomen: Soft nontender nondistended no appreciable hepatosplenomegaly Neuro Other: NIH stroke scale score of 2, patient has mild left facial droop, he also complains of left hand numbness Extrem Other: No edema Psych Other: No hallucination Objective Labs Result Diagrams: 06/01/21 12:54 06/01/21 12:54 Labs: Laboratory Results - last 24 hr 06/01/21 06/01/21 06/01/21 12:54 12:54 12:54 WBC 4.8 RBC 3.66 L Hgb 12.4 L Hct 37.0 L MCV 101.3 H MCH 33.9 MCHC 33.4 RDW 12.7 Plt Count 196 Neut % (Auto) 65.3 Lymph % (Auto) 22.6 L [place] % (Auto) 9.0 Eos % (Auto) 2.4 Baso % (Auto) 0.7 Neut # (Auto) 3100 Lymph # (Auto) 1100 [place] # (Auto) 400 Eos # (Auto) 100 Baso # (Auto) 0 PT 12.7 INR 1.1 APTT 32 Sodium 136 L Potassium 3.8 Chloride 105 Carbon Dioxide 26 BUN 25 H Creatinine 0.77 Estimated GFR > 60.0 BUN/Creatinine Ratio 32.5 H Glucose 115 H Calcium 8.2 L Total Bilirubin 0.6 AST 20 ALT 15 Alkaline Phosphatase 37 L Total Creatine Kinase 52 L CK-MB (CK-2) TNP CK-MB (CK-2) Rel Index TNP Troponin I < 0.012 Total Protein 6.0 L Albumin 3.3 L Globulin 2.7 Albumin/Globulin Ratio 1.2 SARS-CoV-2 (PCR) Blood Type Antibody Screen Crossmatch 06/01/21 06/01/21 12:54 14:00 WBC RBC Hgb Hct MCV MCH MCHC RDW Plt Count Neut % (Auto) Lymph % (Auto) [place] % (Auto) Eos % (Auto) Baso % (Auto) Neut # (Auto) Lymph # (Auto) [place] # (Auto) Eos # (Auto) Baso # (Auto) PT INR APTT Sodium Potassium Chloride Carbon Dioxide BUN Creatinine Estimated GFR BUN/Creatinine Ratio Glucose Calcium Total Bilirubin AST ALT Alkaline Phosphatase Total Creatine Kinase CK-MB (CK-2) CK-MB (CK-2) Rel Index Troponin I Total Protein Albumin Globulin Albumin/Globulin Ratio SARS-CoV-2 (PCR) Negative Blood Type A Positive Antibody Screen Negative Crossmatch See Detail Assessment & Plan Assessment & Plan narrative: Impression 1. 60-year-old male admitted to the hospital with greater than 12 hours of left hand numbness, and headache -his CT shows no acute intracranial lesion -there is some suggestion of hypodensity involving the parietal lobe -patient will continue on an aspirin, Plavix will be added to his regimen -will obtain MRI of the brain, cardiac echo -will start a statin atorvastatin for 80 mg daily -patient will be placed on Lovenox for DVT prophylaxis -cardiac echo will be obtained in the morning -will obtain PT OT consultation 2. Type a thoracic aortic dissection -the patient is status post a aortic dissection repair 5 years ago -consult with Dr. Poole, cardiothoracic surgery indicates no acute issues at this time, no surgical acute intervention is needed, patient will need outpatient evaluation -patient has no chest pain or shortness of breath at this time 3. Hypertension -patient reports he is normally on metoprolol on losartan -will obtain updated med list from his and adjust accordingly Patient reports he is a full code, his is his surrogate decision maker, patient will be admitted under observation and is paid anticipate discharge home
[2021-06-01] MEDS: HYDROCODONE/ACET 5/325 TABLET 1 TAB PO (19:46)
--- NOTE | 2021-06-01 22:50 | PC.ADMIT ---
[id number] [address] Admission Note: Patient arrived to floor from ER at approximately 1730. A&O, VSS, no complaints of pain or discomfort. This RN attempting to complete medication list, this RN unable to do so, patient unsure of medication dosages. Patient from out of town and on her way late tonight with medication list, aware. NIH 2, patient on telemetry per protocol. Patient given written information regarding hospital policies, unit procedures and contact persons. Will continue to monitor. Patient's smoking status: Never smoker. Vital Signs - 8 hr 06/01/21 14:55 06/01/21 15:00 06/01/21 15:05 Temperature Pulse Rate 81 78 78 Respiratory Rate 16 17 18 Blood Pressure 152/75 H Pulse Oximetry 95 95 96 06/01/21 15:10 06/01/21 15:15 06/01/21 15:20 Temperature Pulse Rate 80 76 79 Respiratory Rate 20 18 19 Blood Pressure 151/79 H Pulse Oximetry 97 95 96 06/01/21 15:25 06/01/21 15:30 06/01/21 15:35 Temperature Pulse Rate 79 77 80 Respiratory Rate 19 19 24 Blood Pressure 144/75 H Pulse Oximetry 96 96 97 06/01/21 15:40 06/01/21 15:45 06/01/21 15:50 Temperature Pulse Rate 80 81 Respiratory Rate 21 20 Blood Pressure 145/77 H Pulse Oximetry 97 96 98 06/01/21 15:55 06/01/21 16:00 06/01/21 16:05 Temperature Pulse Rate 81 81 80 Respiratory Rate 20 23 27 H Blood Pressure 142/80 H Pulse Oximetry 97 97 96 06/01/21 16:15 06/01/21 16:30 06/01/21 16:45 Temperature Pulse Rate 78 79 73 Respiratory Rate 20 20 16 Blood Pressure 148/80 H 146/81 H 136/79 Pulse Oximetry 95 97 96 06/01/21 17:00 06/01/21 17:54 06/01/21 21:54 Temperature 98.4 F 98.2 F Pulse Rate 76 77 83 Respiratory Rate 18 16 18 Blood Pressure 143/74 H 145/76 H 119/66 Pulse Oximetry 96 100 98
[2021-06-02] MEDS: ACETAMINOPHEN 325 MG TABLET 650 MG PO ×3 (00:28→14:00)
[2021-06-02 00:49] VITALS: BP 115/69; PULSE 72; RESP 14; TEMP 36.4; O2SAT 94
[2021-06-02 03:59] VITALS: BP 105/65; PULSE 60; RESP 14; TEMP 36.2; O2SAT 97
--- NOTE | 2021-06-02 04:50 | PC.NURSE ---
0030 Pt. declined to secure his home medications in the night pharmacy. Instructed not to take his own home medications, he replied I know I just want keep my pills here. Coordinator Jade Griffiths RN notified that pt. refused to get his home meds. secure in the night pharmacy.
[2021-06-02 06:24] LABS: Cholesterol 105 mg/dL (140-199); HDL Cholesterol 59 mg/dL (40-60); LDL Cholesterol Calculated 29 mg/dL (<100); Triglycerides 87 mg/dL (35-150)
[2021-06-02 07:50] VITALS: BP 132/78; PULSE 67; RESP 16; TEMP 36.4; O2SAT 97
[2021-06-02] MEDS: ENOXAPARIN 40 MG/0.4 ML SYRINGE SUBCUT (08:50)
[2021-06-02] MEDS: DOCUSATE 100 MG CAPSULE PO (08:50)
[2021-06-02] MEDS: ASPIRIN EC 81 MG TABLET PO (08:50)
[2021-06-02] MEDS: CLOPIDOGREL 75 MG TABLET PO (08:50)
[2021-06-02] MEDS: SODIUM CHLORIDE 0.9% FLUSH 10 ML IV (08:51)
--- NOTE | 2021-06-02 09:38 | CM.DANOTE ---
Patient is a 60 year old male who was admitted on 06/01/21 for stroke workup. Pt has [facility] and [facility] for insurance and his PCP is in [place]. EMR was reviewed. Per MD, pt admitted for stroke workup and to have MRI as CT was negative and PT/OT ordered. PT/OT pending. SW met bedside with pt and explained role and pt alert and oriented but brief in his answers and did not provide a lot of additional information. Pt resides in [place] but states he has a place he stays here in [place] as well and that his PCP is in [place]. Pt denies any hx of HH or SNF and preference is to d/c today if medically stable and does not anticipate any needs. Pt states he has someone local who can transport him at d/c. Plan: SW to follow for MRI/PT/OT towards determining any d/c planning needs and confirm safe plan of home when stable. 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 No Advance Directives on File No History Provided By Patient,Medical Record Has Patient been admitted in last 30 No days? Prior Living Arrangements House Household Members spouse Type of transporation used prior to Drives own vehicle admit Independent with ADL's Yes Is patient alert and oriented? Yes Discharge Plan Home Transportation Arrangement Pt states he has someone local he can call for a ride when stable for d/c Referrals Initiated None needed Additional Comment Pending PT/OT eval and recommendations Review Status In Process Please Provide Date Initial DC 06/02/21 Assessment Was Performed Next Review Type Continued Stay Review
--- NOTE | 2021-06-02 09:48 | PT.IIE ---
Current Diagnoses Cerebral infarction, unspecified (06/01/21) Physical Therapy Inpatient Evaluation/Re-Eval M1 PT/OT-IP Prior Functional Status Start: 06/02/21 09:14 Freq: NEEDED Status: Active Protocol: Document 06/02/21 09:48 AW (Rec: 06/02/21 10:15 AW [id number]) Medical Review Prior Functional Status Medical History Reviewed Yes Communication Pt's first language is Luxem[place] but he is fluent in [place]. He is an effective bilingual verbal communicator. Mobility and Gait Independent without assistive device and without meaningful limit. Activities of Daily Living and IADL's Indpendent with all I/ADL's. 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 Social History Household Members spouse Living Arrangements House Number of Floors (Floors) One Floor Number of Stairs To Enter/Railing? No stairs. Home Environment Standard Height Toilet,Walk in Shower Home Equipment Hand Held Shower,Grab Bars In Shower Employment Status Unemployed Additional Social History Comment Pt lives with his spouse, Ander, in [place]. M2 PT-IP Current Condition Start: 06/02/21 09:14 Freq: NEEDED Status: Active Protocol: Document 06/02/21 09:48 AW (Rec: 06/02/21 10:15 AW [id number]) Physical Therapy Current Condition Current Condition Evaluation Date 06/02/21 Treatment Diagnosis L hand tingling, L facial droop, headache, r/o CVA Onset Date 06/01/21 M3 PT-IP Subjective Start: 06/02/21 09:14 Freq: NEEDED Status: Active Protocol: Document 06/02/21 09:48 AW (Rec: 06/02/21 10:15 AW [id number]) Subjective Physical Therapy Visit Type Type Initial Evaluation Visit Start Time 09:27 Visit Stop Time 09:48 Total Visit Minutes 21 Notes MRI was negative for acute infarct but did identify a small remote right parietal lobe infarct Physical Therapy Visit Comments Patient Comments Pt is willing to participate with PT Therapy Pain Assessment Pain When Pain Assessed At Rest Pain Present Pain Present Pain Reported Location Left Head Intensity 5 Scale Used headache is left orbital and occipital Pain Management Techniques Timing of Activity with Medications M4 PT-IP Mobility and Gait Start: 06/02/21 09:14 Freq: NEEDED Status: Active Protocol: Document 06/02/21 09:48 AW (Rec: 06/02/21 10:15 AW [id number]) PT-Bed Mobility Assessment Supine to Sit Supine to Sit Independent PT-Transfer Assessment Sit to and From Stand Sit to and from Stand Independent Equipment Transfer Assistive Device None Orthotic/Prosthetic Devices or Brace: No Transfers Transfer Destination Bed,Chair Transfer Technique ambulated IND Transfer Ability Level of Assist Independent Comments Mobility Comments Pt was lying in bed as PT arrived. Supine BP 116/57 HR 68. He sat up EOB and participated in assessment. He stood and ambulated in the halls IND. On return to the room, he transferred to the chair and then back to bed IND . BP was 146/82 HR 67. Gait Assessment Gait Gait Assistance Required: Independent Distance (Feet) 300 Assistive Devices Assistive Device None Orthotic/Prosthetic Devices or Brace: No Gait Deviations General Gait Pattern Within Normal Limits Comments Gait Comments Pt scored 12/12 on 4-item Dynamic Gait Index. Gait speed was sufficient for safe community ambulation. Stair Climbing Assessment Evaluation Level of Assist On Stairs Independent Devices Stair Climbing Assistive Devices None Technique/Endurance Stair Climbing Direction Ascend and Descend Stair Climbing Technique Step Over Step PT-Balance Assessment Sitting Balance and Reactions Static Sitting Balance Ability Normal Dynamic Sitting Balance Ability Normal Standing Balance and Reactions Static Standing Balance Ability Normal Dynamic Standing Balance Ability Normal Balance Tests Single Limb Standing >15 sec BLE Romberg WNL Comments Other Balance Tests/Deviations/Treatment Pt able to complete rapid 360 : degree turns without LOB Functional Assessments Functional Tests Dynamic Gait Index 4-item DGI: 12/12 M5 PT-IP Objective Assessments Start: 06/02/21 09:14 Freq: NEEDED Status: Active Protocol: Document 06/02/21 09:48 AW (Rec: 06/02/21 10:15 AW [id number]) Orientation Orientation/Cognition Level of Alertness Alert Orientation Name,Day of Week,Place, Situation Language Function Ability No Deficits Noted,Citizen [place] as Second Language Safety Awareness Understands Safety Issues Memory Description No Deficits Noted Gross Range of Motion Upper Extremity ROM Assessment Within Functional Limits Lower Extremity ROM Assessment Within Functional Limits Strength Upper Extremity Strength Assessment Left Impaired Shoulder R 4+/5; L 4/5 Elbow B 4+/5 Lower Extremity Strength Assessment Left Impaired Hip R 4+/5; L 4/5 Knee B 4+/5 Ankle R 4+/5; L 4/5 Comments Strength Comments Shoulder abduction and rotation more affected than flexion. Coordination Assessment Gross Coordination Gross Coordination WNL Assessment Finger to Nose Test Normal Performance Pronation/Supination Test Normal Performance Foot Tapping Test Normal Performance Sensation Assessment Sensation Gross Sensation Left UE Impaired Light Touch Impaired Sensation Description Tingling Comments Sensation Comments Tingling affects ulnar side of hand. No increase in tingling with ulnar nerve tension testing. Muscle Tone Muscle Tone WNL Yes Other Assessments Other Other Assessments Cranial nerves grossly intact except for mild left facial droop. Occulomotor and vestibular screening were grossly normal. M6 PT-IP Treatment Start: 06/02/21 09:14 Freq: NEEDED Status: Active Protocol: Document 06/02/21 09:48 AW (Rec: 06/02/21 10:15 AW [id number]) Physical Therapy Treatment Education Education Provided Safety Other Treatments Other Treatment Performed Educated pt on signs and symptoms of CVA and need for immediate treatment once identified. M7 PT-IP Assessment and Plan Start: 06/02/21 09:14 Freq: NEEDED Status: Active Protocol: Document 06/02/21 09:48 AW (Rec: 06/02/21 10:15 AW [id number]) PT Summary Assessment and Plan Summary Impairments Sensation Assessment Summary Don is a 60 yo man seen for PT evaluation per stroke protocol. He is independent in all regards at baseline. MRI ruled out acute CVA but did identify a small remote right parietal lobe infarct. Pt reports left sided orbital and occipital headache 5/10 at time of exam. He also endorses left hand tingling which affects ulnar side of hand and which has improved since yesterday. Ulnar nerve tension testing did not change his symptms. Pt presents with left sided weakness (~1/2 grade weaker than right) most evident in shoulder abduction and rotation, hip, and ankle. Sensation and strength deficits do not affect pt's mobility as evidenced by his score of 12/12 on modified DGI . No acute or subacute PT needs were identified. Pt was educated on signs/symptoms of CVA and is safe to discharge once medically cleared. Frequency of Treatment Frequency Of Treatment Discharge Recommendations To Nursing Amount of Assist Needed Independent Discharge Recommendations PT Discharge Recommendations Home Transportation Needs at Discharge Private Vehicle
--- NOTE | 2021-06-02 10:22 | OT.IP.EVAL ---
Current Diagnoses Cerebral infarction, unspecified (06/01/21) Occupational Therapy Inpatient Evaluation/Re-Eval M1 PT/OT-IP Prior Functional Status Start: 06/02/21 09:14 Freq: NEEDED Status: Active Protocol: Document 06/02/21 16:05 CGR (Rec: 06/02/21 16:11 CGR [id number]) Medical Review Prior Functional Status Medical History Reviewed Yes Communication Pt's first language is Arabic but he is fluent in Maltese. He is an effective bilingual verbal communicator. Mobility and Gait Independent without assistive device and without meaningful limit. Activities of Daily Living and IADL's Indpendent with all I/ADL's. 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 Social History Household Members spouse Living Arrangements House Number of Floors (Floors) One Floor Number of Stairs To Enter/Railing? No stairs. Home Environment Standard Height Toilet,Walk in Shower Home Equipment Hand Held Shower,Grab Bars In Shower Employment Status Unemployed Additional Social History Comment Pt lives with his spouse, Ander, in [place]. M1 PT/OT-IP Prior Functional Status Start: 06/02/21 16:05 Freq: NEEDED Status: Active Protocol: Document 06/02/21 16:05 CGR (Rec: 06/02/21 16:11 CGR [id number]) Medical Review Prior Functional Status Medical History Reviewed Yes Communication Pt's first language is Arabic but he is fluent in Maltese. He is an effective bilingual verbal communicator. Mobility and Gait Independent without assistive device and without meaningful limit. Activities of Daily Living and IADL's Indpendent with all I/ADL's. 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 Social History Household Members spouse Living Arrangements House Number of Floors (Floors) One Floor Number of Stairs To Enter/Railing? No stairs. Home Environment Standard Height Toilet,Walk in Shower Home Equipment Hand Held Shower,Grab Bars In Shower Employment Status Unemployed Additional Social History Comment Pt lives with his spouse, Ander, in [place]. M2 OT-IP Current Condition Start: 06/02/21 16:05 Freq: Status: Active Protocol: Document 06/02/21 16:05 CGR (Rec: 06/02/21 16:11 CGR [id number]) Occupational Therapy Current Condition Current Condition Evaluation Date 06/02/21 Treatment Diagnosis L hand tingling and headache Diagnosis Onset Date 06/01/21 M3 OT- IP Subjective and Pain Start: 06/02/21 16:05 Freq: Status: Active Protocol: Document 06/02/21 16:05 CGR (Rec: 06/02/21 16:11 R [id number]) OT- Subjective Occupational Therapy Visit Type Type Initial Evaluation Visit Start Time 10:05 Visit Stop Time 10:22 Total Visit Minutes 17 OT Pain Assessment Pain When Pain Assessed At Rest Pain Present Pain Present Pain Reported Location Left Head Intensity 5 Scale Used Numeric (0 - 10) M4 OT- IP ADL's Start: 06/02/21 16:05 Freq: Status: Active Protocol: Document 06/02/21 16:05 CGR (Rec: 06/02/21 16:11 R [id number]) OT [id number] Comments OT Self-Feeding Comments not meal time OT ADL-Grooming General Evaluation Grooming Ability Independent Comments OT Grooming Comments standing at sink OT ADL-Oral Care General Eval Oral Care Ability Independent Comments Oral Care Comments standing at sink OT ADL-Dressing General Eval Lower Body Dressing Ability Independent Areas Needing Assistance Socks OT ADL-Toileting General Evaluation Toileting Ability Independent Comments OT Toileting Comments simulated seated on toilet OT ADL-Bathing Comments OT Bathing Comments not performed M5 OT- IP IADL's Start: 06/02/21 16:05 Freq: Status: Active Protocol: Document 06/02/21 16:05 CGR (Rec: 06/02/21 16:11 R [id number]) OT-Instrumental Activities of Daily Living Deficits IADL Deficits Identified No Deficits Home Safety Awareness Awareness of Need for Assistance at Home Good Awareness Ability to Problem Solve Emergency Able to Problem Solve Situations Medication Management Medication Management No Deficits Identified Money Management Money Management No Deficits Identified Meal Preparation Meal Preparation No Deficits Identified 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 No Deficits Identified Driving Driving Caregiver Provides Assist M6 OT- IP Functional Cognition Start: 06/02/21 16:05 Freq: Status: Active Protocol: Document 06/02/21 16:05 CGR (Rec: 06/02/21 16:11 R [id number]) Cognitive Factors Limiting Selfcare Function Cognitive Ability Level of Alertness Alert Patient Orientation Name,Age,Birthday,Month,Date, Year,Day of Week,Place, Situation Attention Span Ability Capable of Focused Attention, Capable of Sustained Attention Ability to Follow Commands Able to Follow Multi-Step Commands OT- Vision and Hearing OT- Hearing Assessment OT- Hearing Assessment WFL OT- Vision Assessment Visual Acuity Glasses For Reading Visual Attentiveness WFL Occular Pursuits WFL Visual Convergence WFL Visual [place] WFL M7 OT- IP Mobility and Balance Start: 06/02/21 16:05 Freq: Status: Active Protocol: Document 06/02/21 16:05 CGR (Rec: 06/02/21 16:11 CGR [id number]) OT- Bed Mobility Assessment Rolling Level of Assistance Independent Supine to Sit Supine to Sit Assist Independent Sit to Supine Sit to Supine Assist Independent Scooting Scooting to Edge of Bed Independent OT-Transfer Assessment Sit to and From Stand Sit to and from Stand Independent Transfers Transfer Ability Independent Technique Transfer Destination Bed,Toilet Transfer Technique Stand Step Pivot Devices Transfer Assistive Devices Gait Belt OT- Gait Assessment Gait Gait Assistance Required: Independent Assistive Devices Assistive Device Gait Belt OT- Balance Assessment Sitting Balance and Reactions Static Sitting Balance Ability Normal Dynamic Sitting Balance Ability Normal Standing Balance and Reactions Static Standing Balance Ability Normal Dynamic Standing Balance Ability Normal M8 OT- IP Objective Assessments Start: 06/02/21 16:05 Freq: Status: Active Protocol: Document 06/02/21 16:05 CGR (Rec: 06/02/21 16:11 CGR [id number]) OT Gross Range of Motion Upper Extremity Range of Motion Assessment Within Functional Limits OT Strength Upper Extremity Strength Assessment Within Functional Limits Comments Strength Comments grossly 4+/5 OT- Coordination Assessment Upper Extremity Finger to Nose Test Within Functional Limits Finger Tapping Test Within Functional Limits OT-Muscle Tone Assessment Muscle Tone WNL Yes OT Sensation Assessment Edema Edema Absent M9 OT- IP Assessment and Plan Start: 06/02/21 16:05 Freq: Status: Active Protocol: Document 06/02/21 16:05 CGR (Rec: 06/02/21 16:11 CGR [id number]) OT Summary Assessment and Plan Potential Rehabilitation Potential Excellent Analytic Complexity at Evaluation Low Summary OT Impairments Pain Progress Towards Goals Safe For Discharge,Goals Met Assessment Summary Pt presents as a low complexity evaluation s/p admit for L hand tingling and headache. Pt found to have a hypodensity in the parietal lobe. Pt presents at his baseline for ADLs and functional mobility. No further OT needs. Frequency of Treatment Frequency Of Treatment Discharge Discharge Recommendations OT Discharge Recommendations Home Transportation Needs at Discharge Private Vehicle
[2021-06-02 11:53] VITALS: BP 124/69; PULSE 65; RESP 16; TEMP 36.4; O2SAT 97
[2021-06-02 15:10] VITALS: BP 139/73; PULSE 65; RESP 16; TEMP 36.6; O2SAT 96
--- NOTE | 2021-06-02 17:41 | PM.DS.1 ---
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 Patient was in his usual state of health until yesterday. He woke up this morning with tingling of the left hand. He also complained of headache. As he did not feel quite right he presented to the emergency room for evaluation. The patient had no weakness in the arms or legs, he had no slurring of his speech, he had no difficulty speaking. The patient is chronically on an aspirin which he takes. He also has hypertension for which she is on medications. The patient was seen and evaluated in the emergency department. He underwent CT scan of his head which revealed no acute intracranial hemorrhage. There was a hypodensity involving the right parietal lobe potentially suggesting an infarct. The patient underwent CT angio of the abdomen. This revealed a type a aortic dissection extending into the aortic arch and portions of the ascending aorta. This appears to be a prior dissection repair with translocation of great vessels. There is no definitive dissection extending into what appears to be the postsurgical common origin of the innominate, left common carotid and subclavian arteries. The dissection extends into the descending aorta and into the abdominal aorta terminating at the level of the celiac axis. The Patient is admitted to the hospital for evaluation probable stroke. Patient denies any fever or chills, no blurred vision or double vision. No dysuria hematuria pyuria, no joint pains or rashes, no hematemesis melena or bright red blood per rectum. The patient did have an episode of nausea and emesis in the emergency department. All other review of systems is negative Discharge Providers Provider Date of admission: 06/01/21 14:57 Discharge Date: 06/02/21 Consults: 06/01/21 17:59 Consult to Occupational Therapy Evaluate & Treat Comment: Physician Instructions: Evaluate and treat Consult to Physical Therapy Evaluate & Treat Comment: Physician Instructions: Evaluate and Treat Discharge provider: Marisa Vences MD Summary Hospital Course Discharge Diagnosis: 1. Left hand numbness 2. Hypertension 3. History of type a thoracic aneurysm dissection with repair Hospital Course: The patient is a 60-year-old male who was admitted to the hospital with a chief complaint of left hand numbness. He reports he had a similar episode 1 year ago. He discussed with his primary care provider who informed him should this happen again he should go directly to the ER. Patient stated he had tingling of the left hand. He also had some headache. He did not feel well and presented to the emergency room.The patient had a head CT in the emergency department which tree she field no acute intracranial hemorrhage. Patient had a head neck CT. This showed a partially visualized aortic dissection. This dissection appears to begin distal to the left subclavian artery. Postoperative changes of the aneurysm were seen as well. A CT angio of the abdomen and pelvis was obtained. This revealed a type a aortic dissection extending into the aortic arch and portions of the ascending aorta. There is an overall appearance of what appears to be a prior dissection repair with translocation of the great vessels. The dissection extends into the descending thoracic aorta and into the abdominal aortic terminating at the level of the celiac axis. The patient underwent a brain MRI which was negative for an acute stroke echocardiogram revealed an EF of 55-60%. In addition there were no wall motion abnormalities. Both atria were mildly dilated. There was no interatrial shunt. Patient continued to have tingling in the left hand. This appeared to be along the ulnar nerve distribution. Patient was discharged home. Recommended he follow-up with his primary care provider for possible nerve conduction study for further evaluation. Exam Vital Signs (past 8 hours): - 06/02/21 11:53 06/02/21 15:10 Temperature 97.6 F 97.8 F Pulse Rate 65 65 Respiratory Rate 16 16 Blood Pressure 124/69 139/73 Pulse Oximetry 97 96 Oxygen Delivery Method Room Air Oxygen Flow Rate 0 Narrative Exam Narrative: Pleasant gentleman in no acute distress Chest Other: Midline surgical incision well healed Resp Other: Lungs clear to auscultation Cardio Other: Cardiac exam regular rate and rhythm normal S1-S2 GI Other: Abdomen soft and nontender Neuro Other: Neuro exam is nonfocal, patient has a NIH score of 0, he continues to have tingling in the left hand Objective Labs Result Diagrams: 06/01/21 12:54 06/01/21 12:54 Labs: Laboratory Results - last 24 hr 06/02/21 05:55 Triglycerides 87 Cholesterol 105 L LDL Cholesterol, Calc 29 HDL Cholesterol 59 PFSH Family History (Updated 06/01/21 @ 18:06 by Marisa Vences MD) Father FH: heart attack Social History household members: spouse Smoking Status: Never smoker alcohol intake: current Discharge Assessment & Plan Assessment and Plan Assessment: Left hand numbness, suspect ulnar neuropathy doubt TIA Hypertension History of type a thoracic aneurysm repair Plan of Treatment: Discharge home follow-up with primary care provider next week for outpatient nerve conduction study Discharge Plan Discharge Plan Patient Disposition: Home Discharge orders & Medications Prescriptions: New aspirin 81 mg Tablet,Delayed Release (Dr/Ec) 81 mg PO DAILY Qty: 30 RF: 0 Continued Lipitor 20 mg 20 mg PO DAILY RF: 0 amlodipine 5 mg 5 mg PO DAILY RF: 0 fenofibrate 145 mg 145 mg PO DAILY RF: 0 losartan 100 mg 100 mg PO DAILY RF: 0 metoprolol succinate 50 mg 50 mg PO DAILY RF: 0 Discharge Health Status Multidrug resistant organism: No MDRO Diet/Activity/Treatments Diet: Low-fat and Low-sodium Activity: as tolerated Other treatments: f/u with Dr. Dumont for referral for nerve conduction study of left hand. ? ulnar neuropathy Quality VTE Deep Vein Thrombosis/Pulmonary Embolism Present on Admission: No
--- NOTE | 2021-06-02 18:37 | PC.NURSE ---
Report received, care assumed 1530. Discharge order received. Pt. A&Ox3, denies pain, VSS. IV's dc'd x2. Reviewed discharge instructions, patient verbalizes understanding. Ambulatory discharge at 1833 to home via private vehicle.
== END 2021-06-02 18:35 | disposition home or self-care (01) ==
LOC: ED 14:16 → AC 14:58
PROVIDERS: Admitting Provider Internal Medicine; Emergency Provider Emergency Medicine; Referring Provider Emergency Medicine; Visit Provider Internal Medicine
DX: I63.9 Cerebral infarction, unspecified (principal); R20.0 Anesthesia of skin; R51.9 Headache, unspecified; I71.01 Dissection of thoracic aorta; I10 Essential (primary) hypertension; R29.701 NIHSS score 1; Z20.822 Contact with and (suspected) exposure to COVID-19
CPT/HCPCS: 36415; 70450; 70496; 70498; 70553; 71045; 71275; 74174; 80053; 80061; 82550; 82962; 84484; 85025; 85610; 85730; 86850; 86900; 86901; 87635; 93005; 93306; 96372; 96374; 96376; 97161; 97165; 99285; 99291; C9803; G0378; A9579; J1650; Q9967

== ENCOUNTER 2022-07-10 13:07 | Emergency (ER) | payer OTHER, MEDICAID, SELFPAY ==
[2021-06-01 16:24] VITALS: BMI 26.6
[2022-07-10 13:41] VITALS: BP 133/71; PULSE 76; RESP 16; TEMP 37.1; O2SAT 98; BMI 26.6
[2022-07-10 14:32] LABS: COVID19 -Nasal RAPID Negative (Negative)
--- NOTE | 2022-07-10 18:02 | ED.HA ---
HPI - Headache General Chief Complaint: Headache Stated Complaint: Headache, Nausea Time Seen by Provider: 07/10/22 18:02 Mode of arrival: Ambulatory History of Present Illness HPI Narrative: Patient 61-year-old male with history of CVA 1 year ago, and a type a aortic dissection, presents today a left-sided headache. He says it has been ongoing for the last 5 days it comes and goes. He does have some left-sided weakness, which is not new today is been ongoing since his CVA. He has been taking some Advil at for his headache sometimes it works and does not. Today it is not really working. But based on his previous history of aortic dissection and CVA his family strongly encouraged him to come to the ED and get evaluated. He denies any chest pain no visual changes he is mildly nauseous. He has no abdominal pain he does not typically get headaches. Related Data Home Medications Medication Instructions Recorded Confirmed Lipitor 20 mg PO DAILY 06/02/21 06/02/21 amlodipine 5 mg PO DAILY 06/02/21 06/02/21 fenofibrate 145 mg PO DAILY 06/02/21 06/02/21 losartan 100 mg PO DAILY 06/02/21 06/02/21 metoprolol succinate 50 mg PO DAILY 06/02/21 06/02/21 Previous Rx's Medication Instructions Recorded aspirin 81 mg tablet,delayed 81 mg PO DAILY #30 tabs 06/02/21 release ondansetron 4 mg disintegrating 4 mg PO Q8H PRN nausea and 07/10/22 tablet vomiting #10 tabs Allergies Allergy/AdvReac Type Severity Reaction Status Date / Time No Known Drug Allergies Allergy Verified 06/01/21 12:15 Review of Systems Review of Systems Narrative: GENERAL: Denies chills, fatigue, malaise, fever, sweats, travel HEENT: Denies sinus pain, ear pain, sore throat, difficulty swallowing, neck pain RESPIRATORY: Denies dyspnea, cough, wheezing, hemoptysis, sputum. CARDIOVASCULAR: Denies chest pain, palpitations, orthopnea, edema GASTROINTESTINAL: Denies nausea, vomiting, abdominal pain, diarrhea, constipation, melena. : Denies dysuria, frequency, incontinence, hematuria, urinary retention, flank pain. MUSCULOSKELETAL: Denies weakness, joint pain, or bony pain SKIN: No rash, no erythema, no pruritus NEUROLOGIC: See HPI PSYCHIATRIC: No concerning psychosocial issues. 12 point review of systems is negative except for those stated above and HPI Patient History Medical History (Updated 07/11/22 @ 04:48 by Poonam Reynolds DO) Ascending aortic dissection Family History Father FH: heart attack Social History household members: spouse Smoking Status: Never smoker alcohol intake: current Smoking Status: Never smoker alcohol intake frequency: a few times a month Substance Use Type: does not use Exam Initial Vital Signs Initial Vital Signs: Vital Signs Temperature 98.7 F 07/10/22 13:41 Pulse Rate 76 07/10/22 13:41 Respiratory Rate 16 07/10/22 13:41 Blood Pressure 133/71 07/10/22 13:41 Pulse Oximetry 98 07/10/22 13:41 Oxygen Delivery Method 07/10/22 13:41 GENERAL: Alert pleasant 61-year-old male no acute distress HEENT: Head atraumatic,EOMI, pupils reactive, face symmetric, moist mucous membranes CARDIOVASCULAR: Regular rate and rhythm without murmurs, rubs or gallops. RESPIRATORY: Breath sounds equal bilaterally, no wheezes rales or rhonchi. ABDOMEN: Soft, nontender. Normoactive bowel sounds all 4 quadrants. No guarding or rebound. EXTREMITIES: Normal range of motion, no clubbing or edema. Neurovascularly intact NEUROLOGICAL: Alert and oriented x4.Normal gait and speech. Cranial nerves II through XII grossly intact. Good lemsia-xg-ckod, good gvpc-sd-pryh, strength equal bilaterally, no dysarthria or aphasia, sensation in tact to soft touch bilaterally, no visual changes, no facial droop SKIN: Warm, dry, no laceration, no petechiae, no rashes or lesions. Scores NIH Stroke Scale Level of Conciousness: Alert, keenly responsive Ask month/age: Answers both questions correctly. Open/close eyes, close hand: Performs both tasks correctly Best gaze horizontal: Normal Visual sharpe: No visual loss Facial palsy: Normal symetrical movement Left arm drift: No drift for full 10 sec Right arm drift: No drift for full 10 sec Left leg drift: No drift for full 5 sec Right leg drift: No drift for full 5 sec Limb ataxia: Absent Sensory on face/arms/legs: Normal, no sensory loss Best language: No aphasia, normal Dysarthria: Normal Extinction or inattention: No abnormality Total NIH Stroke scale score: 0 Course Orders Ordered: ED Orders 07/10/22 19:59 EKG-12 Lead Stat Discontinued Medications Sodium Chloride (Normal Saline 0.9%) 1,000 mls @ 1,000 mls/hr IV CONT JAKE Last Infusion: 07/10/22 20:01 Dose: 0 mls/hr Documented By: Admin: 07/10/22 18:39 Dose: 1,000 mls/hr Documented By: NR Ketorolac Tromethamine (Ketorolac 30 Mg/Ml Vial) 15 mg IV NOW ONE Stop: 07/10/22 18:11 Last Admin: 07/10/22 18:39 Dose: 15 mg Documented By: NR Ondansetron HCl (Ondansetron 4 Mg/2 Ml Inj) 4 mg IV NOW ONE Stop: 07/10/22 18:11 Last Admin: 07/10/22 18:39 Dose: 4 mg Documented By: NR Vital Signs Vital signs: Vital Signs - 8 hr 07/10/22 13:41 Temperature 98.7 F Pulse Rate 76 Respiratory Rate 16 Blood Pressure 133/71 Pulse Oximetry 98 Oxygen Delivery Method Room Air MDM - Headache Lab Data Result diagrams: 07/10/22 18:50 07/10/22 18:50 Labs: Lab Results 07/10/22 07/10/22 07/10/22 Range/Units 13:50 18:50 18:50 WBC 5.3 (4.5-11.0) X10^3/uL RBC 4.06 L (4.5-5.9) X10^6/uL Hgb 13.8 (13.5-17.5) g/dL Hct 39.7 L (41-53) % MCV 97.8 (80-100) fL MCH 34.0 (26-34) PG MCHC 34.7 (30-36) % RDW 12.9 (11.6-14.8) % Plt Count 212 (150-400) X10^3/uL Neut % (Auto) 49.5 L (50-75) % Lymph % (Auto) 33.4 (25-40) % [place] % (Auto) 10.6 (3-14) % Eos % (Auto) 5.4 H (2-4) % Baso % (Auto) 1.1 (0-2) % Neut # (Auto) 2600 (5575-7492) /uL Lymph # (Auto) 1800 (4496-2602) /uL [place] # (Auto) 600 (0-900) /uL Eos # (Auto) 300 (0-450) /uL Baso # (Auto) 100 (0-100) /uL Sodium 140 (137-145) mmol/L Potassium 4.4 (3.4-5.1) mmol/L Chloride 105 (98-107) mmol/L Carbon Dioxide 29 (22-32) mmol/L BUN 26 H (9-20) mg/dL Creatinine 0.91 (0.66-1.25) mg/dL Estimated GFR > 60 (>60) mL/min BUN/Creatinine Ratio 28.6 H (6-22) Glucose 88 (80-110) mg/dL Calcium 9.1 (8.4-10.2) mg/dL Total Bilirubin 0.5 (0.2-1.3) mg/dL AST 21 (17-59) IU/L ALT 16 (<50) IU/L Alkaline Phosphatase 33 L (38-126) U/L Total Creatine Kinase 41 L (55-170) U/L CK-MB (CK-2) TNP CK-MB (CK-2) Rel Index TNP Troponin I < 0.012 (0.01-0.034) ng/mL Total Protein 7.2 (6.3-8.2) g/dL Albumin 4.1 (3.5-5.0) g/dL Globulin 3.1 (1.7-4.1) g/dL Albumin/Globulin Ratio 1.3 (1.0-2.8) Lipase 54 (23-300) U/L SARS-CoV-2 (PCR) Negative (Negative) Imaging Data CT scan - head: Radiologist's Impression: [address] [address] [address] Scan Report Signed Patient: Denis Porter MR#: [id number] : 1960 Acct:[id number] Age/Sex: 61 / M Date of Service: 07/10/22 Loc: ED Accession Number: [id number] ?? Procedure: CT head/brain wo con Ordering Provider: Poonam Reynolds D.O. PROCEDURE:? CT HEAD/BRAIN WO CON ? INDICATIONS:? headache x5 days hx of cva ? TECHNIQUE:? Noncontrast 4.5 mm thick angled axial sections acquired from the foramen magnum to the vertex, with coronal and sagittal reformats.? For radiation dose reduction, the following was used:? automated exposure control, adjustment of mA and/or kV according to patient size.? ? COMPARISON:? None. ? FINDINGS:? Image quality:? Excellent.? ? CSF spaces:? Basal cisterns are patent.? No extra-axial fluid collections.? The ventricles are symmetric in size and shape.? ? Brain:? No intracranial bleeds or masses.? There is cerebral volume loss for age, with resultant ventricular and sulcal prominence.? There is chronic cortical volume loss in the right parietal region, similar compared to the prior study.? There are periventricular and deep white matter chronic small vessel ischemic changes.? ? Skull and face:? Calvarium and visualized facial bones appear intact, without suspicious lesions.? ? Sinuses:? Mucous retention cyst or polyps in the left maxillary sinus.? Visualized sinuses and mastoids are otherwise clear.? ? IMPRESSION:? ? 1. No CT evidence of acute intracranial process.? ? 2. Stable appearance of prior right parietal infarct.? ? ? Dictated by: Bell Prince M.D. on 07/10/2022 at 18:46 ? ? ECG Data Interpretation: Normal sinus rhythm rate 67 ME interval 236 QRS [address] changes T-wave inversion noted in lead 3 only MDM Narrative Medical decision making narrative: Despite patient having quite extensive concerning history he overall appears well. He has had a headache off and on for the last 5 days. He has been taking Advil for it at today he feels little bit nauseous. He has had ongoing left-sided arm weakness since his stroke. He has absolutely no chest pain. However when he had his dissection he was completely asymptomatic with normal blood pressure. At this time I do not think we need to re-scanned him for this. He is closely followed. Patient had CT head neurologic exam is negative. Blood work overall reassuring. He is feeling significantly better after Toradol and Zofran. Discharge Plan Departure Patient Disposition: Home Clinical Impression: Headache Instructions: DI for Headache Activity Restrictions/Additional Instructions: *You have been diagnosed with headache *What to do: At this time hypertrophy starts feeling better. Increase fluids and rest. *Continue to take medications as directed Zofran 4 mg every 8 hours if needed for nausea or vomiting Tylenol 650 mg every 4 hours if needed for [id number] *Follow up with your primary care provider in 2-3 days or call [phone] *Return to ER if you should have worsening headache weakness, numbness tingling, persistent vomiting, chest discomfort shortness of breath or any new, worsening or concerning symptoms Prescriptions: New ondansetron 4 mg tablet,disintegrating 4 mg PO Q8H PRN (Reason: nausea and vomiting) Qty: 10 0RF No Action Lipitor 20 mg 20 mg PO DAILY amlodipine 5 mg 5 mg PO DAILY fenofibrate 145 mg 145 mg PO DAILY losartan 100 mg 100 mg PO DAILY metoprolol succinate 50 mg 50 mg PO DAILY aspirin 81 mg Tablet,Delayed Release (Dr/Ec) 81 mg PO DAILY Qty: 30 0RF Visit Report Forms: Patient Portal/API
--- NOTE | 2022-07-10 18:10 | DI.CT.S_ITS ---
PROCEDURE: CT HEAD/BRAIN WO CON INDICATIONS: headache x5 days hx of cva TECHNIQUE: Noncontrast 4.5 mm thick angled axial sections acquired from the foramen magnum to the vertex, with coronal and sagittal reformats. For radiation dose reduction, the following was used: automated exposure control, adjustment of mA and/or kV according to patient size. COMPARISON: None. FINDINGS: Image quality: Excellent. CSF spaces: Basal cisterns are patent. No extra-axial fluid collections. The ventricles are symmetric in size and shape. Brain: No intracranial bleeds or masses. There is cerebral volume loss for age, with resultant ventricular and sulcal prominence. There is chronic cortical volume loss in the right parietal region, similar compared to the prior study. There are periventricular and deep white matter chronic small vessel ischemic changes. Skull and face: Calvarium and visualized facial bones appear intact, without suspicious lesions. Sinuses: Mucous retention cyst or polyps in the left maxillary sinus. Visualized sinuses and mastoids are otherwise clear. IMPRESSION: 1. No CT evidence of acute intracranial process. 2. Stable appearance of prior right parietal infarct. Dictated by: Bell Prince M.D. on 07/10/2022 at 18:46 Approved by: Bell Prince M.D. on 07/10/2022 at 18:49
[2022-07-10] MEDS: ONDANSETRON 4 MG/2 ML INJ IV (18:39)
[2022-07-10] MEDS: KETOROLAC 30 MG/ML VIAL 15 MG IV (18:39)
[2022-07-10] MEDS: SODIUM CHLORIDE 0.9% 1,000 ML 1000 ML IV (18:39)
[2022-07-10 19:04] LABS: Add Manual Diff / Slide Review NO; Basophils Absolute Auto 100 /uL (0-100); Basophils Percent Auto 1.1 % (0-2); Eosinophils Absolute Auto 300 /uL (0-450); Eosinophils Percent Auto 5.4 % (2-4); Hematocrit 39.7 % (41-53); Hemoglobin 13.8 g/dL (13.5-17.5); Lymphocytes Absolute Auto 1800 /uL (1100-4500); Lymphocytes Percent Auto 33.4 % (25-40); Mean Corpuscular HGB Conc 34.7 % (30-36); Mean Corpuscular Volume 97.8 fL (80-100); Monocytes Absolute Auto 600 /uL (0-900); Monocytes Percent Auto 10.6 % (3-14); Neutrophils Absolute Auto 2600 /uL (1500-7000); Neutrophils Percent Auto 49.5 % (50-75); Platelet Count 212 X10^3/uL (150-400); Red Blood Cell Count 4.06 X10^6/uL (4.5-5.9); Red Cell Distribution Width 12.9 % (11.6-14.8); White Blood Cell Count 5.3 X10^3/uL (4.5-11.0)
[2022-07-10 19:20] LABS: Alanine Aminotransferase 16 IU/L (<50); Albumin 4.1 g/dL (3.5-5.0); Albumin Globulin Ratio 1.3 (1.0-2.8); Alkaline Phosphatase 33 U/L (38-126); Aspartate Aminotransferase 21 IU/L (17-59); BUN Creatinine Ratio 28.6 (6-22); Bilirubin Total 0.5 mg/dL (0.2-1.3); Blood Urea Nitrogen 26 mg/dL (9-20); Calcium 9.1 mg/dL (8.4-10.2); Carbon Dioxide 29 mmol/L (22-32); Chloride 105 mmol/L (98-107); Creatine Kinase 41 U/L (55-170); Estimated Glomerular Filt Rate > 60 mL/min (>60); Globulin 3.1 g/dL (1.7-4.1); Glucose 88 mg/dL (80-110); HEMOLYSIS < 15 (0-50); Lipase 54 U/L (23-300); Potassium 4.4 mmol/L (3.4-5.1); Sodium 140 mmol/L (137-145); Total Protein 7.2 g/dL (6.3-8.2)
[2022-07-10 19:31] LABS: Troponin I < 0.012 ng/mL (0.01-0.034)
== END 2022-07-10 20:16 | disposition home or self-care (01) ==
PROVIDERS: Emergency Medicine; Emergency Provider Emergency Medicine
DX: R51.9 Headache, unspecified (principal); R11.0 Nausea; Z20.822 Contact with and (suspected) exposure to COVID-19
CPT/HCPCS: 70450; 80053; 82550; 83690; 84484; 85025; 87635; 93005; 93010; 96361; 96374; 96375; 99283; 99284; C9803; J1885; J2405

== ENCOUNTER 2025-05-26 23:51 | Emergency (ER) | payer MEDICARE, MEDICAID, SELFPAY ==
[2021-06-01 16:24] VITALS: BMI 26.6
--- NOTE | 2025-05-27 00:01 | EKG_ITS ---
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
--- NOTE | 2025-05-27 00:07 | ED.SYNCOPE ---
HPI - Syncope General Chief Complaint: Syncope Stated Complaint: Fall, Fainted, dizziness Time Seen by Provider: 05/27/25 00:07 History of Present Illness HPI narrative: 64-year-old male patient with a history of hypertension, dyslipidemia and aortic valve replacement who complains of lightheadedness and near-syncope earlier this evening. He admits to not drinking fluids well the last few days. No fever, chills, vomiting or diarrhea. No chest pain. Currently feels slightly weak. There was no injury. Related Data Home Medications ?Medication ?Instructions ?Recorded ?Confirmed Lipitor 20 mg PO DAILY 06/02/21 06/02/21 amlodipine 5 mg PO DAILY 06/02/21 06/02/21 fenofibrate 145 mg PO DAILY 06/02/21 06/02/21 losartan 100 mg PO DAILY 06/02/21 06/02/21 metoprolol succinate 50 mg PO DAILY 06/02/21 06/02/21 Previous Rx's ?Medication ?Instructions ?Recorded aspirin 81 mg tablet,delayed 81 mg PO DAILY #30 tabs 06/02/21 release ondansetron 4 mg disintegrating 4 mg PO Q8H PRN nausea and 07/10/22 tablet vomiting #10 tabs Allergies Allergy/AdvReac Type Severity Reaction Status Date / Time No Known Drug Allergies Allergy Verified 06/01/21 12:15 Review of Systems Review of Systems ROS Unobtainable: All systems reviewed & are unremarkable except as noted in HPI and below Cardiovascular Cardiovascular: Reports as per HPI Patient History Medical History (Updated 05/27/25 @ 01:24 by Marcelo Funes MD) Ascending aortic dissection Family History Father FH: heart attack Social History household members: spouse alcohol intake: current alcohol intake frequency: a few times a month Exam Narrative Exam Narrative: General: Alert and conversant. No distress. Appears well nourished and well hydrated Craniofacial: No evidence of trauma. Nontender and no swelling. Eyes: PERRLA EOMI conjunctiva clear HEENT: Tragus, pinnae nontender. Tympanic membranes normal appearance. Oropharynx clear with no swelling, exudate or asymmetry of the pharynx. Nares clear. No sinus tenderness Neck: No tenderness or adenopathy. No meningismus. No JVD Lungs: Clear to auscultation with good air movement. No wheezing, rales or rhonchi. No respiratory distress Cardiac: Regular rate and rhythm with no appreciable murmur or gallop Abdomen: Soft, nontender with no distention or masses. Normal bowel sounds. No rebound or guarding Musculoskeletal: Exam of the extremities, axial spine and ribcage reveals no deformity, bony tenderness or swelling. Range of motion intact Neuro: Alert and oriented. Cranial nerves, motor, sensory and cerebellar all grossly intact. No focal deficit Skin: Warm and normal color. No rashes Psychological: Normal affect and interaction. No evidence of delusion or psychosis. Normal mood. Initial Vital Signs Initial Vital Signs: Vital Signs Temperature 98.2 F 05/27/25 00:19 Pulse Rate 62 05/27/25 00:19 Respiratory Rate 16 05/27/25 00:19 Blood Pressure 133/60 05/27/25 00:19 Pulse Oximetry 97 05/27/25 00:19 Oxygen Delivery Method Room Air 05/27/25 00:19 Course Orders Ordered: ED Orders 05/27/25 00:01 EKG-12 Lead Stat 05/27/25 00:15 CBC Auto Diff [Complete Blood Count AUTO DIFF] Stat CMP [Comprehensive Metabolic Panel] Stat Sodium Chloride (Normal Saline 0.9%) 1,000 mls @ 1,000 mls/hr IV BOLUS ONE Stop: 05/27/25 01:28 Last Admin: 05/27/25 00:46 Dose: 1,000 mls/hr Vital Signs Vital signs: Vital Signs - 8 hr 05/27/25 00:19 05/27/25 00:19 05/27/25 00:30 Temperature 98.2 F Pulse Rate 62 62 62 Respiratory Rate 16 19 19 Blood Pressure 133/60 Pulse Oximetry 97 95 94 Oxygen Delivery Method Room Air 05/27/25 00:30 05/27/25 00:41 05/27/25 00:41 Temperature Pulse Rate 62 Respiratory Rate 21 Blood Pressure 133/67 122/61 Pulse Oximetry 96 Oxygen Delivery Method 05/27/25 01:00 05/27/25 01:00 Temperature Pulse Rate 63 Respiratory Rate 21 Blood Pressure 131/70 Pulse Oximetry 95 Oxygen Delivery Method MDM - Syncope Lab Data 05/27/25 00:15 05/27/25 00:15 Labs: Lab Results 05/27/25 Range/Units 00:15 WBC 7.4 (4.5-11.0) X10^3/uL RBC 3.76 L (4.5-5.9) X10^6/uL Hgb 13.3 L (13.5-17.5) g/dL Hct 37.9 L (41-53) % MCV 100.8 H (80-100) fL MCH 35.2 H (26-34) PG MCHC 35.0 (30-36) % RDW 12.8 (11.6-14.8) % Plt Count 170 (150-400) X10^3/uL Neut % (Auto) Not Reportable Lymph % (Auto) Not Reportable [place] % (Auto) Not Reportable Eos % (Auto) Not Reportable Baso % (Auto) Not Reportable Lymph # (Auto) Not Reportable [place] # (Auto) Not Reportable Baso # (Auto) Not Reportable Total Counted 100 Seg Neutrophils % 55.0 (38-70) % Band Neutrophils % 2.0 L (3-7) % Lymphocytes % (Manual) 38.0 (25-45) % Monocytes % (Manual) 3.0 (2-11) % Eosinophils % (Manual) 1.0 L (2-4) % Basophils % (Manual) 1.0 (0-1) % Neutrophils # (Manual) 4218 (0581-4606) /uL RBC Morphology See below Macrocytosis 1+ H Sodium 139 (137-145) mmol/L Potassium 4.0 (3.4-5.1) mmol/L Chloride 105 (98-107) mmol/L Carbon Dioxide 25 (22-32) mmol/L BUN 25 H (9-20) mg/dL Creatinine 0.92 (0.66-1.25) mg/dL Estimated GFR > 60 (>60) mL/min BUN/Creatinine Ratio 27.2 H (6-22) Glucose 93 (70-99) mg/dL Calcium 8.9 (8.4-10.2) mg/dL Total Bilirubin 0.7 (0.2-1.3) mg/dL AST 61 H (17-59) IU/L ALT 50 H (<50) IU/L Alkaline Phosphatase 43 (38-126) U/L Total Protein 6.9 (6.3-8.2) g/dL Albumin 4.1 (3.5-5.0) g/dL Globulin 2.8 (1.7-4.1) g/dL Albumin/Globulin Ratio 1.5 (1.0-2.8) ECG Data Attestation: I personally reviewed and interpreted this ECG as follows: (Sinus rhythm with first-degree AV block. ST changes consistent with repolarization. Rate 62. [place] and intervals are normal. No ischemic changes otherwise ) MDM Narrative Medical decision making narrative: Patient with near-syncope or possibly brief syncope with possible dehydration or possible side effect from his blood pressure medications, but no other precipitating causes. EKG and lab work reassuring. First-degree block but no other block that would cause these symptoms. Patient given instructions on hydration, rest and follow up with primary care to discuss symptoms and blood pressure management and medication side effects. Return to the ER if worse. Discharge Plan Departure Patient Disposition: Home Clinical Impression: Near syncope Instructions: DI for Syncope in Adults (Fainting) Activity Restrictions/Additional Instructions: Hydration, rest and supportive care. Monitor symptoms. Follow up closely with your provider within the next 5 days to discuss symptoms and possible adjustment of medication. Symptoms are possibly related to blood pressure medication. Prescriptions: No Action ondansetron 4 mg tablet,disintegrating 4 mg PO Q8H PRN (Reason: nausea and vomiting) Qty: 10 0RF Lipitor 20 mg 20 mg PO DAILY amlodipine 5 mg 5 mg PO DAILY fenofibrate 145 mg 145 mg PO DAILY losartan 100 mg 100 mg PO DAILY metoprolol succinate 50 mg 50 mg PO DAILY aspirin 81 mg Tablet,Delayed Release (Dr/Ec) 81 mg PO DAILY Qty: 30 0RF Stand Alone Forms: Patient Portal/API
[2025-05-27 00:19] VITALS: BP 133/60; PULSE 62; RESP 16; RESP 19; TEMP 36.8; O2SAT 95; O2SAT 97; BMI 26.6
[2025-05-27 00:30] VITALS: BP 133/67; PULSE 62; RESP 19; O2SAT 94
[2025-05-27 00:41] VITALS: BP 122/61; PULSE 62; RESP 21; O2SAT 96
[2025-05-27] MEDS: SODIUM CHLORIDE 0.9% 1,000 ML 1000 ML IV (00:46)
[2025-05-27 00:51] LABS: Add Manual Diff / Slide Review YES; Hematocrit 37.9 % (41-53); Hemoglobin 13.3 g/dL (13.5-17.5); Mean Corpuscular HGB Conc 35.0 % (30-36); Mean Corpuscular Hemoglobin 35.2 PG (26-34); Mean Corpuscular Volume 100.8 fL (80-100); Platelet Count 170 X10^3/uL (150-400)
[2025-05-27 00:52] LABS: Alanine Aminotransferase 50 IU/L (<50); Albumin 4.1 g/dL (3.5-5.0); Albumin Globulin Ratio 1.5 (1.0-2.8); Alkaline Phosphatase 43 U/L (38-126); Blood Urea Nitrogen 25 mg/dL (9-20); Calcium 8.9 mg/dL (8.4-10.2); Carbon Dioxide 25 mmol/L (22-32); Chloride 105 mmol/L (98-107); Estimated Glomerular Filt Rate > 60 mL/min (>60); Globulin 2.8 g/dL (1.7-4.1); Glucose 93 mg/dL (70-99); HEMOLYSIS 17 (0-50); Potassium 4.0 mmol/L (3.4-5.1); Sodium 139 mmol/L (137-145); Total Protein 6.9 g/dL (6.3-8.2)
[2025-05-27 01:00] VITALS: BP 131/70; PULSE 63; RESP 21; O2SAT 95
[2025-05-27 01:22] LABS: Band Neutrophils Percent 2.0 % (3-7); Basophils Percent Manual 1.0 % (0-1); Eosinophils Percent Manual 1.0 % (2-4); Lymphocytes Percent Manual 38.0 % (25-45); Macrocytosis 1+; Monocytes Percent Manual 3.0 % (2-11); Neutrophils Absolute Manual 4218 /uL (3000-5900); Segmented Neutrophils Percent 55.0 % (38-70); Total Cells Counted 100
[2025-05-27 01:30] VITALS: BP 139/70; PULSE 60; RESP 21; O2SAT 97
== END 2025-05-27 01:35 | disposition home or self-care (01) ==
PROVIDERS: Emergency Provider Emergency Medicine
DX: R55 Syncope and collapse (principal); I10 Essential (primary) hypertension; Z95.2 Presence of prosthetic heart valve
CPT/HCPCS: 80053; 85007; 85025; 93005; 96360; 99284